=== PATIENT | female | born 1960 | race Caucasian/White ===

== ENCOUNTER 2018-01-20 13:13 | Emergency (ER) | payer OTHER, MEDICAID, SELFPAY | END 2018-01-20 14:27 | disposition left against medical advice (07) | PROVIDERS: Family Provider Family Medicine; PCP Family Medicine | DX: F10.220 Alcohol dependence with intoxication, uncomplicated (principal) | CPT/HCPCS: 99282 ==

== ENCOUNTER 2018-02-18 02:35 | Emergency (ER) | payer OTHER, MEDICAID, SELFPAY ==
--- NOTE | 2018-02-18 02:34 | ED.FALL ---
HPI - Fall General Chief Complaint: Fall Stated Complaint: ETOH on board,GLF,hit head Time Seen by Provider: 02/18/18 02:46 Source: patient and EMS History of Present Illness HPI Narrative: Patient is a 57-year-old female who is intoxicated. She apparently was trying knee into her car when she fell. She is complaining of right-sided head pain no obvious sign of trauma or bleeding. No other injuries MD complaint: fall Related Data Home Medications Medication Instructions Recorded Confirmed pseudoephedrine HCl [Sudafed 12 120 mg PO Q12HP PRN #0 ter 07/27/13 Hour] sumatriptan succinate 6 mg SQ SEE INSTRUCTIONS PRN #0 07/02/17 [id number]-HP 1 drp OTIC #0 09/15/17 Previous Rx's Medication Instructions Recorded triamcinolone acetonide 1 collette TOPICAL BID #15 gm 08/09/17 celecoxib 100 mg PO BIDCC #60 cap 08/27/17 ciclopirox [Penlac] 3.3 ml TP SEE INSTRUCTIONS #6 ml 09/17/17 trazodone 150 mg PO HS #90 tab 10/06/17 meloxicam [Mobic] 15 mg PO AMCC #30 tab 11/12/17 hydrocodone-acetaminophen [[place]] 1 - 2 tab PO Q6H PRN #15 tab 11/17/17 gabapentin [Neurontin] 800 mg PO TID #90 tab 01/04/18 venlafaxine 3 cap PO QDAY #90 tab 01/12/18 oxazepam 30 mg PO SEE INSTRUCTIONS #20 cap 01/28/18 [K/B/G/I/N/O] See Label Instructions TOPICAL TID 02/10/18 #240 gm Allergies Allergy/AdvReac Type Severity Reaction Status Date / Time pregabalin [PREGABALIN] Allergy Severe HIVES Unverified 01/19/18 12:17 adhesive tape [ADHESIVE TAPE] Allergy Unknown Unverified 01/19/18 12:17 iodine [IODINE] Allergy Unknown Unverified 01/19/18 12:17 Sulfa (Sulfonamide Allergy Unknown Unverified 01/19/18 12:17 Antibiotics) [SULFA (SULFONAMIDE ANTIBIOTICS)] Review of Systems Review of Systems All systems reviewed & are unremarkable except as noted in HPI and below Constitutional Denies fatigue, Denies frequent falls and Denies headache(s) Eyes Denies change in vision, Denies eye discharge, Denies irritation and Denies loss of vision ENT Ears, Nose, Mouth, and Throat: Denies headache(s) Cardiovascular Denies chest pain, Denies lightheadedness and Denies palpitations Musculoskeletal Comments: Recent metatarsal surgery left foot in walking boot Integumentary/Breasts Denies skin pain Neurologic Denies frequent falls, Denies headache(s) and Denies loss of vision Endocrine Denies fatigue and Denies palpitations Exam Const General: cooperative and anxious Nutritional Appearance: average body habitus Orientation: alert, awake and oriented to person Other: Intoxicated [facility] Head: normal to inspection, normocephalic, atraumatic, No contusion, No laceration, No scalp lesion and No scalp tenderness Nose: external nose normal Face and sinus: normal facial exam Mouth: oral mucosae normal Eyes Pupils: PERRL EOM: EOM intact bilaterally Neck Neck: normal visual inspection, supple and No tender Chest Chest: normal inspection of the chest Resp Effort & Inspection: normal respiratory effort, able to speak in complete sentences, no respiratory distress and no use of accessory muscles Auscultation: clear to auscultation bilaterally, no rales, no rhonchi and no wheezes Cardio Rate: regular rate Rhythm: regular rhythm Heart Sounds: no click, no gallops, no murmurs and no rubs Pulses: normal peripheral pulses GI Inspection: non-distended Palpation: soft, no hepatosplenomegaly, No guarding, No pulsatile mass and No tender Auscultation: normal bowel sounds Skin General: no rashes or lesions noted, No jaundice and No petechiae Extrem General: full ROM, no clubbing, cyanosis or edema, no pedal edema and no calf tenderness Left lower extremity: ankle (In walking boot recent surgery moving toes) [facility] Medical History Alcohol abuse (Acute) Surgical History History of tonsillectomy Status post delivery Status post delivery Status post rotator cuff repair Status post rotator cuff repair Family History Grandfather Heart disease MDM - Fall Imaging Data CT scan - head: Radiologist's impression: 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 Straightening of the normal curve may be due to positioning or muscle spasm. Course Hospital Course: 3 30 a.m. patient wanting to leave. She has a steady gait. She left prior to receiving her discharge papers. Head CT and C-spine CT have been received and are negative. Orders Ordered: ED Orders 02/18/18 02:36 CT cervical spine wo con Stat CT head/brain wo con Stat Last Vital Signs Pulse 95 H 02/18/18 02:37 Resp 14 02/18/18 02:37 BP 139/85 H 02/18/18 02:37 Pulse Ox 95 02/18/18 02:37 Discharge Plan Departure Patient Disposition: Home, Self-Care Clinical Impression: Head injury, Alcohol intoxication Activity Restrictions/Additional Instructions: *You have been diagnosed with alcohol intoxication head injury *What to do: *Take medications as directed *Follow up with your primary care provider in 2-3 days *Return to ER if you should have any new, worsening or concerning symptoms Prescriptions: No Action pseudoephedrine HCl [Sudafed 12 Hour] 120 MG tablet extended release 120 mg PO Q12HP PRNQty: 0 RF: 0 sumatriptan succinate 6 MG/0.5 ML pen injector 6 mg SQ SEE INSTRUCTIONS PRNQty: 0 RF: 0 triamcinolone acetonide 0.1 % cream 1 collette Topical BID Qty: 15 RF: 2 celecoxib 100 MG capsule 100 mg PO BIDCC Qty: 60 RF: 1 fbwopoex-vnzrmsolc-AR 10 ML drops,suspension 1 drp OTIC Qty: 0 RF: 0 ciclopirox [Penlac] 6.6 ML solution 3.3 ml TP SEE INSTRUCTIONS Qty: 6 RF: 1 trazodone 50 MG tablet 150 mg PO HS Qty: 90 RF: 3 meloxicam [Mobic] 15 MG tablet 15 mg PO AMCC Qty: 30 RF: 0 hydrocodone-acetaminophen [Sanborn] 5 MG/325 MG tablet 1 - 2 tab PO Q6H PRNQty: 15 RF: 0 gabapentin [Neurontin] 800 MG tablet 800 mg PO TID Qty: 90 RF: 5 venlafaxine 75 MG tablet extended release 24hr 3 cap PO QDAY Qty: 90 RF: 0 oxazepam 15 MG capsule 30 mg PO SEE INSTRUCTIONS Qty: 20 RF: 0 [K/B/G/I/N/O] See Label Instructions Topical TID Qty: 240 RF: 1 Referrals: Marina Mena MD [Primary Care Provider] -
--- NOTE | 2018-02-18 02:36 | DI.CT.S_ITS ---
PROCEDURE: CT HEAD/BRAIN WO CON INDICATIONS: ETOH fall TECHNIQUE: Noncontrast 4.5 mm thick angled axial sections acquired from the foramen magnum to the vertex, with coronal and sagittal reformats. For radiation dose reduction, the following was used: automated exposure control, adjustment of mA and/or kV according to patient size. COMPARISON: [facility], CT, HEAD WITHOUT CONTRAST, 07/09/2017, 21:16. FINDINGS: Image quality: Excellent. CSF spaces: Basal cisterns are patent. No extra-axial fluid collections. Ventricles are normal in size and shape. Brain: No midline shift. There is mildly prominent cortical atrophy No intracranial masses or hemorrhage. Gómez-white matter interface is normal. Skull and face: Calvarium and visualized facial bones are intact, without suspicious lesions. Sinuses: Visualized sinuses and mastoids are clear. IMPRESSION: No acute intracranial process. Dictated by: Cresencio Castro M.D. on 02/18/2018 at 7:19 Approved by: Cresencio Castro M.D. on 02/18/2018 at 7:21
--- NOTE | 2018-02-18 02:36 | DI.CT.S_ITS ---
PROCEDURE: CT CERVICAL SPINE WO CON INDICATIONS: ETOH fall TECHNIQUE: Noncontrast 3 mm thick sections acquired from the skull base to the T4 level. Sagittal and coronal reformats were then constructed. For radiation dose reduction, the following was used: automated exposure control, adjustment of mA and/or kV according to patient size. COMPARISON: [facility], CT, C-SPINE WITHOUT CONTRAST, 03/14/2017, 22:19. FINDINGS: Image quality: Excellent. Bones: No fractures or dislocations. Visualized superior ribs are intact. Straightening of the normal cervical lordosis. Grade 1 anterolisthesis C2 on C3. Grade 1 retrolisthesis of C4 on C5. Diffuse mid to lower cervical disc degeneration with endplate spurring and sclerosis. Diffuse facet arthropathy. Nonspecific focal sclerosis involving the T3 vertebral body is unchanged since 03/14/17. Recommend clinical correlation and consider bone scan as clinically indicated. Soft tissues: Prevertebral soft tissues are normal in thickness. No paravertebral hematomas. No apical pneumothoraces. IMPRESSION: No fracture. Degenerative changes as above. Straightening of the normal cervical lordosis. Dictated by: Cresencio Castro M.D. on 02/18/2018 at 7:24 Approved by: Cresencio Castro M.D. on 02/18/2018 at 7:28
[2018-02-18 02:37] VITALS: BP 139/85; PULSE 95; RESP 14; O2SAT 95
--- NOTE | 2018-02-18 03:11 | PC.NURSE ---
Pt requesting the side rail to be down. I asked her to please not get out of bed without assistance and to use the call light for help. Pt stated that she would not use the call light. She also stated that it is illegal to have the both side rails up. I informed her that we were doing it for her safetly but that we would put it down per her request.
--- NOTE | 2018-02-18 03:33 | ED_ITS ---
HPI - Fall General Chief Complaint: Fall Stated Complaint: ETOH on board,GLF,hit head Time Seen by Provider: 02/18/18 02:46 Source: patient and EMS History of Present Illness HPI Narrative: Patient is a 57-year-old female who is intoxicated. She apparently was trying knee into her car when she fell. She is complaining of right-sided head pain no obvious sign of trauma or bleeding. No other injuries MD complaint: fall Related Data Home Medications Medication Instructions Recorded Confirmed pseudoephedrine HCl [Sudafed 12 120 mg PO Q12HP PRN #0 ter 07/27/13 Hour] sumatriptan succinate 6 mg SQ SEE INSTRUCTIONS PRN #0 07/02/17 [id number]-cytxyhemz-ML 1 drp OTIC #0 09/15/17 Previous Rx's Medication Instructions Recorded triamcinolone acetonide 1 collette TOPICAL BID #15 gm 08/09/17 celecoxib 100 mg PO BIDCC #60 cap 08/27/17 ciclopirox [Penlac] 3.3 ml TP SEE INSTRUCTIONS #6 ml 09/17/17 trazodone 150 mg PO HS #90 tab 10/06/17 meloxicam [Mobic] 15 mg PO AMCC #30 tab 11/12/17 hydrocodone-acetaminophen [[place]] 1 - 2 tab PO Q6H PRN #15 tab 11/17/17 gabapentin [Neurontin] 800 mg PO TID #90 tab 01/04/18 venlafaxine 3 cap PO QDAY #90 tab 01/12/18 oxazepam 30 mg PO SEE INSTRUCTIONS #20 cap 01/28/18 [K/B/G/I/N/O] See Label Instructions TOPICAL TID 02/10/18 #240 gm Allergies Allergy/AdvReac Type Severity Reaction Status Date / Time pregabalin [PREGABALIN] Allergy Severe HIVES Unverified 01/19/18 12:17 adhesive tape [ADHESIVE TAPE] Allergy Unknown Unverified 01/19/18 12:17 iodine [IODINE] Allergy Unknown Unverified 01/19/18 12:17 Sulfa (Sulfonamide Allergy Unknown Unverified 01/19/18 12:17 Antibiotics) [SULFA (SULFONAMIDE ANTIBIOTICS)] Review of Systems Review of Systems All systems reviewed & are unremarkable except as noted in HPI and below Constitutional Denies fatigue, Denies frequent falls and Denies headache(s) Eyes Denies change in vision, Denies eye discharge, Denies irritation and Denies loss of vision ENT Ears, Nose, Mouth, and Throat: Denies headache(s) Cardiovascular Denies chest pain, Denies lightheadedness and Denies palpitations Musculoskeletal Comments: Recent metatarsal surgery left foot in walking boot Integumentary/Breasts Denies skin pain Neurologic Denies frequent falls, Denies headache(s) and Denies loss of vision Endocrine Denies fatigue and Denies palpitations Exam Const General: cooperative and anxious Nutritional Appearance: average body habitus Orientation: alert, awake and oriented to person Other: Intoxicated [facility] Head: normal to inspection, normocephalic, atraumatic, No contusion, No laceration, No scalp lesion and No scalp tenderness Nose: external nose normal Face and sinus: normal facial exam Mouth: oral mucosae normal Eyes Pupils: PERRL EOM: EOM intact bilaterally Neck Neck: normal visual inspection, supple and No tender Chest Chest: normal inspection of the chest Resp Effort & Inspection: normal respiratory effort, able to speak in complete sentences, no respiratory distress and no use of accessory muscles Auscultation: clear to auscultation bilaterally, no rales, no rhonchi and no wheezes Cardio Rate: regular rate Rhythm: regular rhythm Heart Sounds: no click, no gallops, no murmurs and no rubs Pulses: normal peripheral pulses GI Inspection: non-distended Palpation: soft, no hepatosplenomegaly, No guarding, No pulsatile mass and No tender Auscultation: normal bowel sounds Skin General: no rashes or lesions noted, No jaundice and No petechiae Extrem General: full ROM, no clubbing, cyanosis or edema, no pedal edema and no calf tenderness Left lower extremity: ankle (In walking boot recent surgery moving toes) [facility] Medical History Alcohol abuse (Acute) Surgical History History of tonsillectomy Status post delivery Status post delivery Status post rotator cuff repair Status post rotator cuff repair Family History Grandfather Heart disease MDM - Fall Imaging Data CT scan - head: Radiologist's impression: hourly shift report no acute abnormality mild cortical atrophy prominent for patient's age c-spine: Radiologist's impression: hourly shift report no evidence of fracture or subluxation. Straightening of the normal curve may be due to positioning or muscle spasm. Course Hospital Course: 3 30 a.m. patient wanting to leave. She has a steady gait. She left prior to receiving her discharge papers. Head CT and C-spine CT have been received and are negative. Orders Ordered: ED Orders 02/18/18 02:36 CT cervical spine wo con Stat CT head/brain wo con Stat Last Vital Signs Pulse 95 H 02/18/18 02:37 Resp 14 02/18/18 02:37 BP 139/85 H 02/18/18 02:37 Pulse Ox 95 02/18/18 02:37 Discharge Plan Departure Patient Disposition: Home, Self-Care Clinical Impression: Head injury, Alcohol intoxication Activity Restrictions/Additional Instructions: *You have been diagnosed with alcohol intoxication head injury *What to do: *Take medications as directed *Follow up with your primary care provider in 2-3 days *Return to ER if you should have any new, worsening or concerning symptoms Prescriptions: No Action pseudoephedrine HCl [Sudafed 12 Hour] 120 MG tablet extended release 120 mg PO Q12HP PRNQty: 0 RF: 0 sumatriptan succinate 6 MG/0.5 ML pen injector 6 mg SQ SEE INSTRUCTIONS PRNQty: 0 RF: 0 triamcinolone acetonide 0.1 % cream 1 collette Topical BID Qty: 15 RF: 2 celecoxib 100 MG capsule 100 mg PO BIDCC Qty: 60 RF: 1 tqgvwgbu-sjnusfjyo-KK 10 ML drops,suspension 1 drp OTIC Qty: 0 RF: 0 ciclopirox [Penlac] 6.6 ML solution 3.3 ml TP SEE INSTRUCTIONS Qty: 6 RF: 1 trazodone 50 MG tablet 150 mg PO HS Qty: 90 RF: 3 meloxicam [Mobic] 15 MG tablet 15 mg PO AMCC Qty: 30 RF: 0 hydrocodone-acetaminophen [[place]] 5 MG/325 MG tablet 1 - 2 tab PO Q6H PRNQty: 15 RF: 0 gabapentin [Neurontin] 800 MG tablet 800 mg PO TID Qty: 90 RF: 5 venlafaxine 75 MG tablet extended release 24hr 3 cap PO QDAY Qty: 90 RF: 0 oxazepam 15 MG capsule 30 mg PO SEE INSTRUCTIONS Qty: 20 RF: 0 [K/B/G/I/N/O] See Label Instructions Topical TID Qty: 240 RF: 1 Referrals: Marina Mena MD [Primary Care Provider] -
== END 2018-02-18 03:26 | disposition home or self-care (01) ==
PROVIDERS: Emergency Provider Emergency Medicine; Family Provider Family Medicine; PCP Family Medicine
DX: S09.90XA Unspecified injury of head, initial encounter (principal); W19.XXXA Unspecified fall, initial encounter; F10.929 Alcohol use, unspecified with intoxication, unspecified
CPT/HCPCS: 70450; 72125; 99282; 99284

== ENCOUNTER 2018-02-25 13:49 | Emergency (ER) | payer OTHER, MEDICAID, SELFPAY ==
--- NOTE | 2018-02-25 13:55 | ED.HEATRA ---
HPI - Head Injury <JOSEFA Jay - Last Filed: 02/25/18 22:09> General Chief complaint: Head Injury Stated complaint: head pain and eye twitching Time Seen by Provider: 02/25/18 13:56 History of Present Illness HPI Narrative: 57-year-old female with history of alcohol abuse here for complaint of headache over the last couple of days. She states that she had a ground level fall where she hit the back of her head. No known loss of consciousness. No nausea or vomiting. She states she has ongoing headache with pain to her right ear as well. She appears to be intoxicated at the current time. She arrived by ambulance. She denies any other injuries. She denies being on any blood thinners. Patient is able to ambulate. She denies any neck pain. Related Data Home Medications Medication Instructions Recorded Confirmed alprazolam 1.5 tab PO DAILY 02/25/18 02/25/18 meloxicam 15 mg PO DAILY 02/25/18 02/25/18 oxazepam 1 dose PO DIRECTED 02/25/18 02/25/18 sumatriptan succinate 1 dose PO PRN PRN 02/25/18 02/25/18 Previous Rx's Medication Instructions Recorded trazodone 150 mg PO HS #90 tab 10/06/17 gabapentin [Neurontin] 800 mg PO TID #90 tab 01/04/18 venlafaxine 3 cap PO QDAY #90 tab 01/12/18 [K/B/G/I/N/O] See Label Instructions TOPICAL TID 02/10/18 #240 gm Allergies Allergy/AdvReac Type Severity Reaction Status Date / Time pregabalin [PREGABALIN] Allergy Severe HIVES Verified 02/22/18 16:03 adhesive tape [ADHESIVE TAPE] Allergy Unknown Verified 02/22/18 16:03 iodine [IODINE] Allergy Unknown Verified 02/22/18 16:03 Sulfa (Sulfonamide Allergy Unknown Verified 02/22/18 16:03 Antibiotics) [SULFA (SULFONAMIDE ANTIBIOTICS)] Review of Systems <JOSEFA Jay - Last Filed: 02/25/18 22:09> Constitutional Denies chills, Denies fever(s), Reports headache(s) and Denies lethargy Eyes Denies change in vision, Denies eye discharge, Denies irritation and Denies loss of vision ENT Ears, Nose, Mouth, and Throat: Reports headache(s) Cardiovascular Denies dyspnea and Denies dyspnea on exertion Respiratory Denies cough, Denies dyspnea, Denies dyspnea on exertion and Denies wheezing Neurologic Denies confusion, Reports headache(s) and Denies loss of vision Psychiatric Denies anxiety, Denies confusion, Denies depression, Denies homicidal ideation and Denies suicidal ideation Allergic/Immunologic Denies wheezing Exam <JOSEFA Jay - Last Filed: 02/25/18 22:09> Initial Vital Signs Initial Vital Signs: Vital Signs Temperature 97.6 F 02/25/18 13:56 Pulse Rate 88 02/25/18 13:56 Respiratory Rate 16 02/25/18 13:56 Blood Pressure 134/79 H 02/25/18 13:56 Pulse Oximetry 100 02/25/18 13:56 Const General: No acute distress and intoxicated appearing Orientation: alert, awake and oriented x3 HENMT Mouth: oral mucosae normal, lip normal, oropharynx normal and moist mucous membranes Eyes Pupils: PERRL EOM: EOM intact bilaterally Neck Neck: normal visual inspection, trachea midline, No lymphadenopathy, No midline deformity, No tender and No JVD Lymphatic: No lymphedema Resp Effort & Inspection: normal respiratory effort, able to speak in complete sentences, no respiratory distress and no use of accessory muscles Auscultation: clear to auscultation bilaterally, no rales, no rhonchi and no wheezes Cardio Rate: regular rate Rhythm: regular rhythm Heart Sounds: no click, no gallops, no murmurs and no rubs GI Inspection: non-distended Palpation: soft, no hepatosplenomegaly, No guarding, No pulsatile mass and No tender Auscultation: normal bowel sounds Skin General: no rashes or lesions noted, No jaundice and No petechiae Neuro Sensory Exam: no sensory deficits noted <Darren Fink DO - Last Filed: 02/26/18 08:25> Initial Vital Signs Initial Vital Signs: Vital Signs Temperature 97.6 F 02/25/18 13:56 Pulse Rate 88 02/25/18 13:56 Respiratory Rate 16 02/25/18 13:56 Blood Pressure 134/79 H 02/25/18 13:56 Pulse Oximetry 100 02/25/18 13:56 Course <JOSEFA Jay - Last Filed: 02/25/18 22:09> Orders Ordered: ED Orders 02/25/18 14:29 CT head/brain wo con Stat 02/25/18 14:33 Complete Blood Count AUTO DIFF Stat Comprehensive Metabolic Panel Stat Ethanol (ETOH) Stat Vital Signs - 8 hr 02/25/18 13:56 Temperature 97.6 F Pulse Rate 88 Respiratory Rate 16 Blood Pressure 134/79 H Pulse Oximetry 100 <Darren Fink DO - Last Filed: 02/26/18 08:25> Orders Ordered: ED Orders 02/25/18 14:29 CT head/brain wo con Stat 02/25/18 14:33 Complete Blood Count AUTO DIFF Stat Comprehensive Metabolic Panel Stat Ethanol (ETOH) Stat Vital Signs - 8 hr 02/25/18 13:56 Temperature 97.6 F Pulse Rate 88 Respiratory Rate 16 Blood Pressure 134/79 H Pulse Oximetry 100 MDM - Head Injury <Laz AmandaJOSEFA clark - Last Filed: 02/25/18 22:09> Medical Records CT of the head was obtained and was negative for any acute findings. Patient's alcohol level resulted back at 0.367. After patient was informed that her head CT was negative patient decided to leave. She was informed that her blood alcohol level was high and that she would need somebody to look out after for her. She stated that her neighbor would be able to look out for her. It was requested that she stay until she sobered up some. Patient did not want to stay. She utilized a cab to go home and was instructed to make sure she is supervised by her neighbor to ensure no bad outcomes. She is instructed to follow up with her primary care provider. She denies any suicidal or homicidal ideation at this time. She does not desire to have inpatient services for detox. Although her alcohol level is high patient is functioning well considering. She understands risks as presented to her Lab Data Result diagrams: 02/25/18 14:33 02/25/18 14:33 Lab Results 02/25/18 02/25/18 Range/Units 14:33 14:33 WBC 3.1 L (4.5-11.0) X10^3/uL RBC 3.95 L (4.0-5.2) X10^6/uL Hgb 13.6 (12.0-16.0) g/dL Hct 39.8 (36-46) % MCV 100.6 H (80-100) fL MCH 34.4 H (26-34) PG MCHC 34.2 (30-36) % RDW 14.7 (11.6-14.8) % Plt Count 136 L (150-400) X10^3/uL Neut % (Auto) Not Reportable Lymph % (Auto) Not Reportable Stokes % (Auto) Not Reportable Eos % (Auto) Not Reportable Baso % (Auto) Not Reportable Total Counted 100 Seg Neutrophils % 15.0 L (38-70) % Band Neutrophils % 1.0 L (3-7) % Lymphocytes % (Manual) 79.0 H (25-45) % Atypical Lymphs % 1.0 H ( - 0) % Monocytes % (Manual) 2.0 (2-11) % Basophils % (Manual) 1.0 (0-1) % Metamyelocytes % 1.0 H (-0) % Neutrophils # (Manual) 496 L (8469-2204) /uL RBC Morphology Normal morphology Sodium 148 H (137-145) mmol/L Potassium 4.0 (3.4-5.1) mmol/L Chloride 104.0 (98-107) mmol/L Carbon Dioxide 31.0 (22-32) mmol/L BUN 14.0 (7-17) mg/dL Creatinine 0.40 L (0.52-1.04) mg/dL Estimated GFR > 60.0 (>60) mL/min BUN/Creatinine Ratio 35.0 H (6-22) Glucose 79 (70-100) mg/dL Calcium 8.5 (8.4-10.2) mg/dL Total Bilirubin 0.4 (0.2-1.3) mg/dL AST 50 H (14-36) IU/L ALT 29 (9-52) IU/L Alkaline Phosphatase 117 (38-126) U/L Total Protein 7.6 (6.3-8.2) g/dL Albumin 4.6 (3.5-5.0) g/dL Globulin 3.0 (1.7-4.1) g/dL Albumin/Globulin Ratio 1.5 (1.0-2.8) Ethyl Alcohol 367 mg/dL Imaging Data CT scan - head: Radiologist's impression: PROCEDURE: CT HEAD/BRAIN WO CON INDICATIONS: headache sp fall 2 days ago TECHNIQUE: Noncontrast 4.5 mm thick angled axial sections acquired from the foramen magnum to the vertex, with coronal and sagittal reformats. For radiation dose reduction, the following was used: automated exposure control, adjustment of mA and/or kV according to patient size. COMPARISON: [facility], CT, HEAD WITHOUT CONTRAST, 08/11/2016, 13:26. [facility], CT, HEAD WITHOUT CONTRAST, 03/14/2017, 22:19. [facility], CT, HEAD WITHOUT CONTRAST, 04/07/2017, 22:37. [facility], CT, HEAD WITHOUT CONTRAST, 07/02/2017, 11:27. [facility], CT, HEAD WITHOUT CONTRAST, 07/09/2017, 21:16. [facility], CT, CT HEAD/BRAIN WO CON, 02/18/2018, 2:33. FINDINGS: Image quality: Artifact from left ear ring CSF spaces: Basal cisterns are patent. No extra-axial fluid collections. Ventricles are normal in size and shape. Brain: No midline shift. No intracranial masses or hemorrhage. Gómez-white matter interface is normal. A mild degree of diffuse cortical atrophy is present. Skull and face: Calvarium and visualized facial bones are intact, without suspicious lesions. Sinuses: Visualized sinuses and mastoids are clear. IMPRESSION: No acute intracranial abnormality or interval change. <Darren Fink, DO - Last Filed: 02/26/18 08:25> Lab Data Lab Results 02/25/18 02/25/18 Range/Units 14:33 14:33 WBC 3.1 L (4.5-11.0) X10^3/uL RBC 3.95 L (4.0-5.2) X10^6/uL Hgb 13.6 (12.0-16.0) g/dL Hct 39.8 (36-46) % MCV 100.6 H (80-100) fL MCH 34.4 H (26-34) PG MCHC 34.2 (30-36) % RDW 14.7 (11.6-14.8) % Plt Count 136 L (150-400) X10^3/uL Neut % (Auto) Not Reportable Lymph % (Auto) Not Reportable Stokes % (Auto) Not Reportable Eos % (Auto) Not Reportable Baso % (Auto) Not Reportable Total Counted 100 Seg Neutrophils % 15.0 L (38-70) % Band Neutrophils % 1.0 L (3-7) % Lymphocytes % (Manual) 79.0 H (25-45) % Atypical Lymphs % 1.0 H ( - 0) % Monocytes % (Manual) 2.0 (2-11) % Basophils % (Manual) 1.0 (0-1) % Metamyelocytes % 1.0 H (-0) % Neutrophils # (Manual) 496 L (3337-5146) /uL RBC Morphology Normal morphology Sodium 148 H (137-145) mmol/L Potassium 4.0 (3.4-5.1) mmol/L Chloride 104.0 (98-107) mmol/L Carbon Dioxide 31.0 (22-32) mmol/L BUN 14.0 (7-17) mg/dL Creatinine 0.40 L (0.52-1.04) mg/dL Estimated GFR > 60.0 (>60) mL/min BUN/Creatinine Ratio 35.0 H (6-22) Glucose 79 (70-100) mg/dL Calcium 8.5 (8.4-10.2) mg/dL Total Bilirubin 0.4 (0.2-1.3) mg/dL AST 50 H (14-36) IU/L ALT 29 (9-52) IU/L Alkaline Phosphatase 117 (38-126) U/L Total Protein 7.6 (6.3-8.2) g/dL Albumin 4.6 (3.5-5.0) g/dL Globulin 3.0 (1.7-4.1) g/dL Albumin/Globulin Ratio 1.5 (1.0-2.8) Ethyl Alcohol 367 mg/dL Discharge Plan Departure Patient Disposition: Left Against Medical Advice Clinical Impression: Head injury Discharge Date/Time: 02/25/18 16:10 Interventions: ED Discharge Assessment Last Done: 02/25/18 16:11 Instructions: DI for Closed Head Injury Stand Alone Forms: Against Medical Advice <Darren Fink DO - Last Filed: 02/26/18 08:25> Cosign ED Attending Cosbrittneeature Attestation: I was immediately available in the department for consultation. This documentation has been reviewed and I agree with assessment and plan. Supervised by Darren Fink, DO
[2018-02-25 13:56] VITALS: BP 134/79; PULSE 88; RESP 16; TEMP 36.4; O2SAT 100
--- NOTE | 2018-02-25 14:06 | PC.NURSE ---
PT STATES UNABLE TO OPEN EYE. NOTED EYE OPENING INTERMITTENTLY DURING ASSESSMENT BUT WOULD NOT HOLD EYE OPEN LONG ENOUGH TO NOTE PUPIL SIZE OR REACTIVITY. NO OBVIOUS EYE CONCERN NOTED OTHER THAN EYE BEING SHUT MOST OF TIME.
--- NOTE | 2018-02-25 14:29 | DI.CT.S_ITS ---
PROCEDURE: CT HEAD/BRAIN WO CON INDICATIONS: headache sp fall 2 days ago TECHNIQUE: Noncontrast 4.5 mm thick angled axial sections acquired from the foramen magnum to the vertex, with coronal and sagittal reformats. For radiation dose reduction, the following was used: automated exposure control, adjustment of mA and/or kV according to patient size. COMPARISON: [facility], CT, HEAD WITHOUT CONTRAST, 08/11/2016, 13:26. [facility], CT, HEAD WITHOUT CONTRAST, 03/14/2017, 22:19. [facility], CT, HEAD WITHOUT CONTRAST, 04/07/2017, 22:37. [facility], CT, HEAD WITHOUT CONTRAST, 07/02/2017, 11:27. [facility], CT, HEAD WITHOUT CONTRAST, 07/09/2017, 21:16. [facility], CT, CT HEAD/BRAIN WO CON, 02/18/2018, 2:33. FINDINGS: Image quality: Artifact from left ear ring CSF spaces: Basal cisterns are patent. No extra-axial fluid collections. Ventricles are normal in size and shape. Brain: No midline shift. No intracranial masses or hemorrhage. Gómez-white matter interface is normal. A mild degree of diffuse cortical atrophy is present. Skull and face: Calvarium and visualized facial bones are intact, without suspicious lesions. Sinuses: Visualized sinuses and mastoids are clear. IMPRESSION: No acute intracranial abnormality or interval change. Dictated by: Aneesh Smiley M.D. on 02/25/2018 at 14:48 Approved by: Aneesh Smiley M.D. on 02/25/2018 at 14:52
[2018-02-25 14:39] LABS: Hematocrit 39.8 % (36-46); Hemoglobin 13.6 g/dL (12.0-16.0); Mean Corpuscular HGB Conc 34.2 % (30-36); Mean Corpuscular Hemoglobin 34.4 PG (26-34); Mean Corpuscular Volume 100.6 fL (80-100); Platelet Count 136 X10^3/uL (150-400); Red Blood Cell Count 3.95 X10^6/uL (4.0-5.2); Red Cell Distribution Width 14.7 % (11.6-14.8); White Blood Cell Count 3.1 X10^3/uL (4.5-11.0)
[2018-02-25 14:42] LABS: Add Manual Diff / Slide Review YES
[2018-02-25 14:56] LABS: Alanine Aminotransferase 29 IU/L (9-52); Albumin 4.6 g/dL (3.5-5.0); Albumin Globulin Ratio 1.5 (1.0-2.8); Alkaline Phosphatase 117 U/L (38-126); Aspartate Aminotransferase 50 IU/L (14-36); Bilirubin Total 0.4 mg/dL (0.2-1.3); Calcium 8.5 mg/dL (8.4-10.2); Estimated Glomerular Filt Rate > 60.0 mL/min (>60); Glucose 79 mg/dL (70-100); Sodium 148 mmol/L (137-145); Total Protein 7.6 g/dL (6.3-8.2)
[2018-02-25 15:04] LABS: Ethanol (ETOH) 367 mg/dL; HEMOLYSIS 21 (0-50)
--- NOTE | 2018-02-25 15:28 | PC.NURSE ---
PT REFUSING TO STAY FOR CONTINUED OBSERVATION RT [place] AND UNSTEADY GAIT. PT IS CALLING [facility] AND STATES SHE WILL LEAVE WHEN [facility] GETS HERE. INFORMED PROVIDER AND HE ACKNOWLEDGED INFORMATION AND STATED WE CAN NOT MAKE HER STAY.
[2018-02-25 15:29] LABS: Neutrophils Absolute Manual 496 /uL (3000-5900); Total Cells Counted 100
[2018-02-25 15:31] LABS: RBC Morphology Normal Morphology
== END 2018-02-25 16:10 | disposition left against medical advice (07) ==
PROVIDERS: Emergency Provider Nurse Practitioner Family; Family Provider Family Medicine; PCP Family Medicine
DX: S09.90XA Unspecified injury of head, initial encounter (principal); W19.XXXA Unspecified fall, initial encounter
CPT/HCPCS: 70450; 80053; 80320; 85025; 99282; 99284

== ENCOUNTER 2018-02-28 20:26 | Emergency (ER) | payer SELFPAY ==
--- NOTE | 2018-02-28 20:10 | PC.NURSE ---
PT BROUGHT IN BY MEDICS FOR HEADACHE, TOLD MEDICS SHE DRANK ALCOHOL TO EASE THE PAIN. PT IS ALERT TO PERSON, PLACE, TIME AND SITUATION UPON ARRIVAL. PT DEMANDS TO BE SENT TO [facility] BY [facility]. PT REFUSES CARE. PROVIDER AWARE. PT REFUSES TO SIGN [facility] PAPERWORK. SECURITY SITTING WITH PATIENT IN THE WAITING ROOM UNTIL [facility] ARRIVES.
== END 2018-02-28 20:51 | disposition left against medical advice (07) ==
LOC: ED 20:44
PROVIDERS: Family Provider Family Medicine; PCP Family Medicine
DX: R51 Headache (principal)
CPT/HCPCS: 99282

== ENCOUNTER 2018-03-24 10:39 | Emergency (ER) | payer OTHER, MEDICAID, SELFPAY ==
[2018-03-24 10:42] VITALS: BP 144/90; PULSE 98; RESP 18; TEMP 36.9; O2SAT 96; BMI 27.3
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
--- NOTE | 2018-03-24 11:25 | PC.NURSE ---
pt states i cant relax, so i cant pee pt then attempts to leave ed. through some talking and distraction pt able to redirect to room. pt aprehensive to go back, tearful states wants to go home. explained to patient we need to treat her infection so her dizziness and pain resolves to prevent her from falling again and possibly causing worse injuries. pt agreeable and escorted back to room, given warm blanket and assisted into bed.
--- NOTE | 2018-03-24 11:45 | PC.NURSE ---
Patient is trying to leave, told patient she needed to be seen by the Dr first and to sit tight while the DR could make her way over.
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
--- NOTE | 2018-03-24 13:01 | DI.CT.S_ITS ---
PROCEDURE: CT HEAD/BRAIN WO CON INDICATIONS: Headache TECHNIQUE: Noncontrast 4.5 mm thick angled axial sections acquired from the foramen magnum to the vertex, with coronal and sagittal reformats. For radiation dose reduction, the following was used: automated exposure control, adjustment of mA and/or kV according to patient size. COMPARISON: [facility], CT, CT HEAD/BRAIN WO CON, 02/18/2018, 2:33. [facility], CT, CT HEAD/BRAIN WO CON, 02/25/2018, 14:33. FINDINGS: Image quality: Excellent. CSF spaces: Basal cisterns are patent. No extra-axial fluid collections. The ventricles are symmetric in size and shape. Brain: No intracranial bleeds or masses. There is mild cerebral volume loss for age, with resultant ventricular and sulcal prominence. There mild are periventricular and deep white matter chronic small vessel ischemic changes. Skull and face: Calvarium and visualized facial bones appear intact, without suspicious lesions. Sinuses: Visualized sinuses and mastoids are clear. IMPRESSION: No acute intracranial disease process. Dictated by: Kasie Paulino MD, PhD on 03/24/2018 at 13:32 Approved by: Kasie Paulino MD, PhD on 03/24/2018 at 13:34
[2018-03-24] MEDS: CODEINE/ACETAMINOPHEN 30/300 TABLET 1 TAB PO (13:24)
--- NOTE | 2018-03-24 13:38 | ED_ITS ---
HPI - Headache <Laz Nathan SEWING MACHINE OPERATOR SEMIAUTOMATIC - Last Filed: 03/24/18 19:39> General Chief Complaint: Headache Stated Complaint: Suicidal Time Seen by Provider: 03/24/18 12:40 History of Present Illness HPI Narrative: 57-year-old female here for complaint of having headache over the past few days. She also reports having sinus congestion and left ear pain. She tried to see her primary care provider and while she was on the phone with the primary care provider she stated that she wanted to cut half of her head off. Primary care provider became concerned and called the police and did a safety check on her and brought her here. She states that she was just trying to state what her symptoms were and not that she actually wanted to cause harm to herself. She denies any suicidal ideation or homicidal ideation. She states at this point she wants to go home. She states that she will be safe. She admits to having a drink today prior to arrival. She does state that she has had a headache for the past couple of days after she fell she denies any loss of consciousness. No vomiting. She reports that she has had nasal congestion over the last week edwige half. mostly to the left side causing pain to her left ear as well. She states she has had a low-grade fever as well. No drainage from the left ear. MD Complaint: headache Related Data Home Medications Medication Instructions Recorded Confirmed alprazolam 1.5 tab PO DAILY 02/25/18 03/21/18 meloxicam 15 mg PO DAILY 02/25/18 03/21/18 oxazepam 1 dose PO DIRECTED 02/25/18 03/21/18 sumatriptan succinate 1 dose PO PRN PRN 02/25/18 03/21/18 Previous Rx's Medication Instructions Recorded trazodone 150 mg PO HS #90 tab 10/06/17 gabapentin [Neurontin] 800 mg PO TID #90 tab 01/04/18 venlafaxine 3 cap PO QDAY #90 tab 03/01/18 azelastine 137 mcg (0.1 %) nasal 2 spray NASAL BID PRN 14 Days #30 03/21/18 spray aerosol ml amoxicillin-pot clavulanate 1 tab PO Q12H #20 tab 03/24/18 Allergies Allergy/AdvReac Type Severity Reaction Status Date / Time pregabalin [PREGABALIN] Allergy Severe HIVES Verified 03/21/18 15:33 adhesive tape [ADHESIVE TAPE] Allergy Unknown Verified 03/21/18 15:33 iodine [IODINE] Allergy Unknown Verified 03/21/18 15:33 Sulfa (Sulfonamide Allergy Unknown Verified 03/21/18 15:33 Antibiotics) [SULFA (SULFONAMIDE ANTIBIOTICS)] Review of Systems <JOSEFA Jay - Last Filed: 03/24/18 19:39> Constitutional Reports fever(s) and Reports headache(s) Eyes Denies change in vision, Denies eye discharge, Denies irritation and Denies loss of vision ENT Ears, Nose, Mouth, and Throat: Reports otalgia, Reports headache(s) and Reports nasal congestion Cardiovascular Denies chest pain, Denies irregular heart rhythm, Denies lightheadedness, Denies palpitations, Denies dyspnea, Denies dyspnea on exertion and Denies orthopnea Respiratory Denies cough, Denies dyspnea, Denies dyspnea on exertion and Denies wheezing Gastrointestinal Gastrointestinal: Denies abdominal pain, Denies change in bowel habits, Denies diarrhea, Denies nausea and Denies vomiting Genitourinary Denies hematuria, Denies flank pain, Denies urinary incontinence and Denies urinary urgency Integumentary/Breasts Denies pruritus, Denies erythema, Denies rash and Denies wounds Neurologic Denies confusion, Reports headache(s) and Denies loss of vision Psychiatric Denies anxiety, Denies confusion, Denies depression, Denies homicidal ideation and Denies suicidal ideation Endocrine Denies palpitations Allergic/Immunologic Denies wheezing Exam <JOSEFA Jay - Last Filed: 03/24/18 19:39> Initial Vital Signs Initial Vital Signs: Vital Signs Temperature 98.4 F 03/24/18 10:42 Pulse Rate 98 H 03/24/18 10:42 Respiratory Rate 18 03/24/18 10:42 Blood Pressure 144/90 H 03/24/18 10:42 Pulse Oximetry 96 03/24/18 10:42 Const General: cooperative and well developed Nutritional Appearance: well nourished Orientation: alert, awake, oriented x3 and not confused HENMT Head: normocephalic and atraumatic Ears: external ears normal and TM's normal bilaterally Nose: external nose normal and No nasal discharge Face and sinus: sinuses nontender, face symmetric, no sinus tenderness and No dry mucous membranes Mouth: oral mucosae normal and moist mucous membranes Teeth and gingiva: dentition normal Throat: tonsils normal and uvula midline Eyes General: appearance normal, both eyes and all related structures Eyelids: eyelids normal Conjunctivae: conjunctivae normal Sclera: sclerae normal Pupils: PERRL EOM: EOM intact bilaterally Resp Effort & Inspection: normal respiratory effort, able to speak in complete sentences, no respiratory distress and no use of accessory muscles Auscultation: clear to auscultation bilaterally, no rales, no rhonchi and no wheezes Cardio Rate: regular rate Rhythm: regular rhythm Heart Sounds: no click, no gallops, no murmurs and no rubs GI Inspection: non-distended Palpation: soft, no hepatosplenomegaly, No guarding, No pulsatile mass and No tender Auscultation: normal bowel sounds Neuro General: alert, oriented x3, gait normal and no focal motor deficits Speech: speech normal <DO Rajwinder Clark Last Filed: 03/25/18 08:00> Initial Vital Signs Initial Vital Signs: Vital Signs Temperature 98.4 F 03/24/18 10:42 Pulse Rate 98 H 03/24/18 10:42 Respiratory Rate 18 03/24/18 10:42 Blood Pressure 144/90 H 03/24/18 10:42 Pulse Oximetry 96 03/24/18 10:42 Course <JOSEFA Jay - Last Filed: 03/24/18 19:39> Orders Ordered: Discontinued Medications Acetaminophen/Codeine Phosphate (Tylenol #3) 1 tab PO NOW ONE Stop: 03/24/18 13:24 Last Admin: 03/24/18 13:24 Dose: 1 tab Codeine Sulfate (Codeine) 30 mg PO NOW ONE Stop: 03/24/18 13:21 Last Admin: 03/24/18 13:24 Dose: Not Given Vital Signs - 8 hr 03/24/18 13:41 Pulse Rate 94 H Respiratory Rate 18 Blood Pressure [Right Arm] 145/84 H Pulse Oximetry 94 <Zamzam Ernandez DO - Last Filed: 03/25/18 08:00> Orders Ordered: Discontinued Medications Acetaminophen/Codeine Phosphate (Tylenol #3) 1 tab PO NOW ONE Stop: 03/24/18 13:24 Last Admin: 03/24/18 13:24 Dose: 1 tab Codeine Sulfate (Codeine) 30 mg PO NOW ONE Stop: 03/24/18 13:21 Last Admin: 03/24/18 13:24 Dose: Not Given Vital Signs - 8 hr 03/24/18 13:41 Pulse Rate 94 H Respiratory Rate 18 Blood Pressure [Right Arm] 145/[address] [facility] - Headache <JOSEFA Jay - Last Filed: 03/24/18 19:39> Imaging Data CT scan - head: Radiologist's impression: PROCEDURE: CT HEAD/BRAIN WO CON INDICATIONS: States weakness and changes in ability to function, resolved TECHNIQUE: Noncontrast 4.5 mm thick angled axial sections acquired from the foramen magnum to the vertex, with coronal and sagittal reformats. For radiation dose reduction, the following was used: automated exposure control, adjustment of mA and/or kV according to patient size. COMPARISON: [facility], CT, HEAD WITHOUT CONTRAST, 06/21/2015, 12:02. FINDINGS: Image quality: Excellent. CSF spaces: Basal cisterns are patent. No extra-axial fluid collections. The ventricles are symmetric in size and shape. Brain: No intracranial bleeds or masses. There is cerebral volume loss for age , with resultant ventricular and sulcal prominence. There are periventricular and deep white matter chronic small vessel ischemic changes. There is intracranial internal carotid artery atherosclerosis. Skull and face: Calvarium and visualized facial bones appear intact, without suspicious lesions. Sinuses: Visualized sinuses and mastoids are clear. IMPRESSION: No acute intracranial disease process. Dictated by: Kasie Paulino MD, PhD on 03/24/2018 at 12:18 Approved by: Kasie Paulino MD, PhD on 03/24/2018 at 12:19 [facility] Narrative Medical decision making narrative: Due to recent fall and headache CT of the head was obtained and was negative. Patient agrees to safety she denies any suicidal or homicidal ideation. Her blood alcohol level was .241 which she able to function well and make sound decisions. She is encouraged to follow up with her primary care provider next week. She is prescribed Augmentin to treat sinus infection. For any worsening symptoms return to the emergency room. Patient lives close to hospital and desires to take a taxi home. She is able to ambulate without any complications. Discharge Plan Departure Patient Disposition: Home, Self-Care Clinical Impression: Headache, Sinusitis Discharge Date/Time: 03/24/18 15:07 Interventions: ED Discharge Assessment Last Done: 03/24/18 15:07 Instructions: DI for Sinusitis Activity Restrictions/Additional Instructions: CT of the head was obtained was negative for any acute findings. Pressure to the sinus area presents as sinusitis. Urine prescribed an antibiotic use as directed. Use [id number] Tylenol or Motrin as needed for any discomfort. Follow up with primary care provider next week for re-evaluation. For any worsening symptoms return to the emergency room. Do not drive under the influence. Return emergency room for any worsening symptoms. Prescriptions: New amoxicillin-pot clavulanate 875-125 mg tablet 1 tab PO Q12H Qty: 20 RF: 0 No Action azelastine 137 mcg (0.1 %) aerosol,spray 2 spray NASAL BID PRN (Reason: as needed for sinus pressure) 14 Days Qty: 30 RF: 3 trazodone 50 MG tablet 150 mg PO HS Qty: 90 RF: 3 gabapentin [Neurontin] 800 MG tablet 800 mg PO TID Qty: 90 RF: 5 venlafaxine 75 mg tablet extended release 24hr 3 cap PO QDAY Qty: 90 RF: 0 meloxicam 15 mg tablet 15 mg PO DAILY RF: 0 sumatriptan succinate 100 mg tablet 1 dose PO PRN PRN (Reason: Migraine Headache) RF: 0 oxazepam 15 mg capsule 1 dose PO DIRECTED RF: 0 alprazolam 0.5 mg tablet 1.5 tab PO DAILY RF: 0 Referrals: Marina Mena MD [Primary Care Provider] - <Zamzam Ernandez DO - Last Filed: 03/25/18 08:00> Cosign ED Attending Richard Attestation: I was immediately available in the department for consultation. Documentation has been reviewed. I agree with assessment and plan.
[2018-03-24 13:41] VITALS: BP 145/84; PULSE 94; RESP 18; O2SAT 94
--- NOTE | 2018-03-24 14:54 | ED.HA ---
HPI - Headache General Chief Complaint: Headache Stated Complaint: Suicidal Time Seen by Provider: 03/24/18 12:40 Related Data Home Medications Medication Instructions Recorded Confirmed alprazolam 1.5 tab PO DAILY 02/25/18 03/21/18 meloxicam 15 mg PO DAILY 02/25/18 03/21/18 oxazepam 1 dose PO DIRECTED 02/25/18 03/21/18 sumatriptan succinate 1 dose PO PRN PRN 02/25/18 03/21/18 Previous Rx's Medication Instructions Recorded trazodone 150 mg PO HS #90 tab 10/06/17 gabapentin [Neurontin] 800 mg PO TID #90 tab 01/04/18 venlafaxine 3 cap PO QDAY #90 tab 03/01/18 azelastine 137 mcg (0.1 %) nasal 2 spray NASAL BID PRN 14 Days #30 03/21/18 spray aerosol ml amoxicillin-pot clavulanate 1 tab PO Q12H #20 tab 03/24/18 Allergies Allergy/AdvReac Type Severity Reaction Status Date / Time pregabalin [PREGABALIN] Allergy Severe HIVES Verified 03/21/18 15:33 adhesive tape [ADHESIVE TAPE] Allergy Unknown Verified 03/21/18 15:33 iodine [IODINE] Allergy Unknown Verified 03/21/18 15:33 Sulfa (Sulfonamide Allergy Unknown Verified 03/21/18 15:33 Antibiotics) [SULFA (SULFONAMIDE ANTIBIOTICS)] Review of Systems Constitutional Reports headache(s) Eyes Denies loss of vision ENT Ears, Nose, Mouth, and Throat: Reports headache(s) Neurologic Denies confusion, Reports headache(s) and Denies loss of vision Psychiatric Denies confusion [facility] Medical History Anxiety (Chronic) Bicytopenia (Chronic) Chronic back pain (Chronic 2001) Depression (Chronic) Shoulder pain (Chronic) Alcohol abuse (Acute) Surgical History History of tonsillectomy (Resolved 1979) Status post delivery (Resolved 1983) Status post delivery (Resolved 1986) Status post rotator cuff repair (Resolved 2002) Status post rotator cuff repair (Resolved 2009) Family History Grandfather Heart disease Grandmother Alzheimer's disease Grandfather No problems noted. Social History Smoking Status: Former smoker Exam Initial Vital Signs Initial Vital Signs: Vital Signs Temperature 98.4 F 03/24/18 10:42 Pulse Rate 98 H 03/24/18 10:42 Respiratory Rate 18 03/24/18 10:42 Blood Pressure 144/90 H 03/24/18 10:42 Pulse Oximetry 96 03/24/18 10:42 Scores PERC Score Age greater than or equal to 50 years: No Heart rate greater than or equal to 100 bpm: No Room Air O2 Sat less than 95%: No Unilateral leg swelling: No Recent trauma or surgery: No Hemoptysis: No Prior PE or DVT: No Hormone Use: No Course Orders Ordered: ED Orders 03/24/18 13:01 CT head/brain wo con Stat Discontinued Medications Acetaminophen/Codeine Phosphate (Tylenol #3) 1 tab PO NOW ONE Stop: 03/24/18 13:24 Last Admin: 03/24/18 13:24 Dose: 1 tab Codeine Sulfate (Codeine) 30 mg PO NOW ONE Stop: 03/24/18 13:21 Last Admin: 03/24/18 13:24 Dose: Not Given Vital Signs - 8 hr 03/24/18 10:42 03/24/18 13:41 Temperature 98.4 F Pulse Rate 98 H 94 H Respiratory Rate 18 18 Blood Pressure 144/90 H Blood Pressure [Right Arm] 145/84 H Pulse Oximetry 96 94 Discharge Plan Departure Patient Disposition: Home, Self-Care Clinical Impression: Headache, Sinusitis Instructions: DI for Sinusitis Activity Restrictions/Additional Instructions: CT of the head was obtained was negative for any acute findings. Pressure to the sinus area presents as sinusitis. Urine prescribed an antibiotic use as directed. Use [id number] Tylenol or Motrin as needed for any discomfort. Follow up with primary care provider next week for re-evaluation. For any worsening symptoms return to the emergency room. Do not drive under the influence. Return emergency room for any worsening symptoms. Prescriptions: New amoxicillin-pot clavulanate 875-125 mg tablet 1 tab PO Q12H Qty: 20 RF: 0 No Action azelastine 137 mcg (0.1 %) aerosol,spray 2 spray NASAL BID PRN (Reason: as needed for sinus pressure) 14 Days Qty: 30 RF: 3 trazodone 50 MG tablet 150 mg PO HS Qty: 90 RF: 3 gabapentin [Neurontin] 800 MG tablet 800 mg PO TID Qty: 90 RF: 5 venlafaxine 75 mg tablet extended release 24hr 3 cap PO QDAY Qty: 90 RF: 0 meloxicam 15 mg tablet 15 mg PO DAILY RF: 0 sumatriptan succinate 100 mg tablet 1 dose PO PRN PRN (Reason: Migraine Headache) RF: 0 oxazepam 15 mg capsule 1 dose PO DIRECTED RF: 0 alprazolam 0.5 mg tablet 1.5 tab PO DAILY RF: 0 Referrals: Marina Mena MD [Primary Care Provider] -
== END 2018-03-24 15:07 | disposition home or self-care (01) ==
PROVIDERS: Emergency Provider Nurse Practitioner Family; Family Provider Family Medicine; PCP Family Medicine
DX: R51 Headache (principal); J32.9 Chronic sinusitis, unspecified
CPT/HCPCS: 70450; 82075; 99282; 99284

== ENCOUNTER 2018-05-02 07:04 | Emergency (ER) | payer OTHER, MEDICAID, SELFPAY ==
[2018-05-02 07:17] VITALS: BP 121/72; PULSE 90; RESP 18; TEMP 37; O2SAT 97
--- NOTE | 2018-05-02 07:48 | DI.RAD.S_ITS ---
PROCEDURE: XR CHEST 2V INDICATIONS: s/p fall w/ chest pain TECHNIQUE: 2 views of the chest were acquired. COMPARISON: [facility], , CHEST 2 VIEW, 12/27/2017, 12:52. FINDINGS: Surgical changes and devices: None. Lungs and pleura: No pleural effusions or pneumothorax. Lungs are clear. Mediastinum: Mediastinal contours are normal. Heart size is normal. Bones and chest wall: No suspicious bony abnormalities. Soft tissues appear unremarkable. IMPRESSION: No acute cardiopulmonary disease process. Repeat plain film radiographs targeted to area of maximal tenderness or advanced imaging (CT scan) is warranted if symptoms persist. Dictated by: Kasie Paulino MD, PhD on 05/02/2018 at 8:38 Approved by: Kasie Paulino MD, PhD on 05/02/2018 at 8:40
--- NOTE | 2018-05-02 08:04 | DI.CT.S_ITS ---
PROCEDURE: CT HEAD/BRAIN WO CON INDICATIONS: s/p fall w/ head strike and AMS TECHNIQUE: Noncontrast 4.5 mm thick angled axial sections acquired from the foramen magnum to the vertex, with coronal and sagittal reformats. For radiation dose reduction, the following was used: automated exposure control, adjustment of mA and/or kV according to patient size. COMPARISON: [facility], CT, CT HEAD/BRAIN WO CON, 03/24/2018, 13:04. [facility], CT, CT HEAD/BRAIN WO CON, 02/25/2018, 14:33. [facility], CT, CT HEAD/BRAIN WO CON, 02/18/2018, 2:33. [facility], CT, HEAD WITHOUT CONTRAST, 07/02/2017, 11:27. [facility], CT, HEAD WITHOUT CONTRAST, 04/07/2017, 22:37. FINDINGS: Image quality: Excellent. CSF spaces: Basal cisterns are patent. No extra-axial fluid collections. Ventricles are normal in size and shape. Brain: No midline shift. No intracranial masses or hemorrhage. Mild, triple volume loss for age with resultant ventricular and sulcal prominence. There are mild periventricular and deep white matter chronic small vessel ischemic changes. Gómez-white matter interface is normal. Skull and face: Calvarium and visualized facial bones are intact, without suspicious lesions. Mild left frontal scalp swelling noted. Sinuses: Visualized sinuses and mastoids are clear. IMPRESSION: No acute intracranial disease process. Dictated by: Kasie Paulino MD, PhD on 05/02/2018 at 8:17 Approved by: Kasie Paulino MD, PhD on 05/02/2018 at 8:21
--- NOTE | 2018-05-02 08:04 | DI.CT.S_ITS ---
PROCEDURE: CT CERVICAL SPINE WO CON INDICATIONS: s/p fall w/ head strike and AMS TECHNIQUE: Noncontrast 3 mm thick sections acquired from the skull base to the T4 level. Sagittal and coronal reformats were then constructed. For radiation dose reduction, the following was used: automated exposure control, adjustment of mA and/or kV according to patient size. COMPARISON: [facility], CT, C-SPINE WITHOUT CONTRAST, 03/14/2017, 22:19. [facility], CT, CT CERVICAL SPINE WO CON, 02/18/2018, 2:33. FINDINGS: Image quality: Excellent. Bones: No fractures or dislocations. Trace C2-C3 anterolisthesis stable compared to prior examination. Spine degenerative disc disease and facet arthropathy. Sclerotic lesion in the superior aspect of the T3 vertebral body is stable in size and contour compared to prior examinations. Visualized superior ribs are intact. Soft tissues: Prevertebral soft tissues are normal in thickness. No paravertebral hematomas. No apical pneumothoraces. IMPRESSION: No fracture. No acute osseous lesion. If symptoms and/or clinical suspicion for pathology persists, evaluation with MRI may be helpful for further assessment. Dictated by: Kasie Paulino MD, PhD on 05/02/2018 at 8:21 Approved by: Kasie Paulino MD, PhD on 05/02/2018 at 8:29
[2018-05-02 08:22] VITALS: BP 131/85; PULSE 89; RESP 18; O2SAT 98
[2018-05-02 08:27] LABS: Add Manual Diff / Slide Review NO; Basophils Percent Auto 0.4 % (0-2); Eosinophils Percent Auto 1.2 % (2-4); Hematocrit 40.8 % (36-46); Hemoglobin 13.8 g/dL (12.0-16.0); Lymphocytes Percent Auto 44.6 % (25-40); Mean Corpuscular HGB Conc 33.8 % (30-36); Mean Corpuscular Hemoglobin 34.3 PG (26-34); Mean Corpuscular Volume 101.5 fL (80-100); Monocytes Percent Auto 6.2 % (3-14); Neutrophils Absolute Auto 2000 /uL (3000-5900); Neutrophils Percent Auto 47.6 % (50-75); Platelet Count 183 X10^3/uL (150-400); Red Blood Cell Count 4.02 X10^6/uL (4.0-5.2); Red Cell Distribution Width 13.9 % (11.6-14.8); White Blood Cell Count 4.2 X10^3/uL (4.5-11.0)
[2018-05-02 08:42] LABS: Lactate (Lactic Acid) 1.1 mmol/L (0.7-2.1)
[2018-05-02 08:44] LABS: Alanine Aminotransferase 39 IU/L (9-52); Albumin 4.5 g/dL (3.5-5.0); Albumin Globulin Ratio 1.7 (1.0-2.8); Alkaline Phosphatase 111 U/L (38-126); Aspartate Aminotransferase 55 IU/L (14-36); Bilirubin Total 0.2 mg/dL (0.2-1.3); Blood Urea Nitrogen 12 mg/dL (7-17); Carbon Dioxide 34 mmol/L (22-32); Chloride 107 mmol/L (98-107); Estimated Glomerular Filt Rate > 60.0 mL/min (>60); Gamma Glutamyl Transpeptidase 36 U/L (12-43); Globulin 2.7 g/dL (1.7-4.1); Glucose 90 mg/dL (70-100); HEMOLYSIS < 15 (0-50); Lipase 121 U/L (23-300); Potassium 4.2 mmol/L (3.4-5.1); Sodium 150 mmol/L (137-145); Total Protein 7.2 g/dL (6.3-8.2)
[2018-05-02 08:52] LABS: Ethanol (ETOH) 294 mg/dL
[2018-05-02 10:13] VITALS: BP 144/83; PULSE 96; RESP 18; O2SAT 100
--- NOTE | 2018-05-02 10:25 | ED.FALL ---
HPI - Fall General Chief Complaint: Fall Stated Complaint: GLF, trouble breathing Time Seen by Provider: 05/02/18 07:14 History of Present Illness HPI Narrative: HPI 57-year-old female with history of EtOH abuse and a a left foot Lisfranc fracture, pancytopenia, nodulocystic acne, and a lung mass presents slurring her speech, confused and complaining of head pain and chest pain after a fall backwards from standing height yesterday in which she struck the back of her head on a fence while gardening. Patient reports that she was pulling weeds, her hand slipped backwards, struck her left face, and that she stumbled backwards striking the back of her head against a fence. Unclear LOC, unclear how the patient struck her right chest, but has been complaining of right-sided chest discomfort since her injury. Patient may have had a garden tool in her hand when she struck her face. Patient reports that she was seen at urgent care and is recommended that she present to the emergency department for a CT head. The patient then went home and rested through the night at had ongoing symptoms and presented to the ED for further care. Outside records reviewed with respect to lung mass, notable for a CT dated 04/20/18. Impression: infiltrates are present in the lower lobes bilaterally, right greater than left, suspect for pneumonia. Correlate clinically. 2.5 cm hypodense filling defect in the lower right lobe of the kidney is likely hemangioma but limited abdominal ultrasound is advised for further evaluation. M/S/F/SocHx notable for: please see HPI; remainder reviewed with patient and in chart. ROS: Negative constitutional, eye, cardiovascular, pulmonary, GI, , MSK, skin, neurologic, psychiatric, endocrine unless noted in the HPI. Exam General: pleasant, not in extremis, slurring speech, moderately confused. HENT: ecchymosis and abrasions the orbital rim lateral, inferior, and superior to the left eye, no underlying bony tenderness to palpation, occipital tenderness to palpation without further palpable abnormalities, TTP of orbits, TTP of midface, malocclusion, or septal hematoma. OP clear and moist, dentition intact. Eyes: EOMI, PERRL. Neck: Tracheal midline. No visible skin defects, no step-offs, no c-spine TTP, no stridor, or JVD. Cardiac: Regular rate and rhythm. Chest: No crepitus, visual evidence of trauma, no tenderness to palpation. Equal chest rise. Pulm: Clear to auscultation bilaterally, normal work of breathing without accessory muscle usage. Abd: Soft, nontender to palpation, nondistended, no guarding or visual evidence of trauma. Back: No spinous process tenderness to palpation, no step-offs or visible injuries. Pelvis: Stable, no tenderness to palpation or instability. RUE: No visible injuries. Board Certified Family Physician 5/5, radial pulse 2+, sensation intact at hand. Shoulder, elbow, wrist, and fingers with full functional range of motion. Muscle compartments of the upper arm, forearm, and hand are soft and without marked tenderness to palpation. LUE: No visible injuries. Board Certified Family Physician 5/5, radial pulse 2+, sensation intact at hand. Shoulder, elbow, wrist, and fingers with full functional range of motion. Muscle compartments of the upper arm, forearm, and hand are soft and without marked tenderness to palpation. RLE: Band-Aid on abrasion over right knee, no further visible injuries. Dorsiflexion 5/5, distal pulse 2+, sensation intact at foot. Hip, knee, ankle, and toes with full functional range of motion. Muscle compartments of the thigh, calf, and foot are soft and without marked tenderness to palpation. LLE: walking boot in place, no visible injuries. Dorsiflexion 5/5, distal pulse 2+, sensation grossly intact. Hip, knee, ankle, and toes with full functional range of motion. Muscle compartments of the thigh, calf, and foot are soft and without marked tenderness to palpation. Neuro: AOx3, CN VII intact slurring speech. Skin: Warm and dry (focal injuries noted above). Psych: unusual mood and affect. Labs / Imaging (pertinent): CT head: no acute intracranial process. CT C-spine: no acute traumatic abnormality. CXR: no acute cardiopulmonary abnormality. WBC 4.2, Hb 13.8, Na 150, K 4.2, GGT 36, AST 55, ALT 39, EtOH 294. MDM Previous chart, nursing note, and vitals reviewed. A: 57-year-old female with history of EtOH abuse and a a left foot Lisfranc fracture, pancytopenia, nodulocystic acne, and a lung mass presents slurring her speech, confused and complaining of head pain and chest pain after a fall backwards from standing height yesterday in which she struck the back of her head on a fence while gardening. 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 CT head and C-spine are without evidence of clinically significant traumatic abnormalities, chest x-ray has no further evidence of traumatic abnormalities. Patient's labs are notable for consistent hypernatremia. Patient observed to clinical sobriety and discharge with PCP follow-up recommended. Impression: fall, contusions, EtOH intoxication (please reference below for remainder of encounter information) Related Data Home Medications Medication Instructions Recorded Confirmed alprazolam 1.5 tab PO DAILY 02/25/18 05/01/18 meloxicam 15 mg PO DAILY 02/25/18 05/01/18 sumatriptan succinate 1 dose PO PRN PRN 02/25/18 05/01/18 Previous Rx's Medication Instructions Recorded trazodone 150 mg PO HS #90 tab 10/06/17 gabapentin [Neurontin] 800 mg PO TID #90 tab 01/04/18 venlafaxine 3 cap PO QDAY #90 tab 04/05/18 tretinoin 0.1 % topical cream 1 applictn TOP Q3D #45 gram 04/20/18 mupirocin 2 % topical ointment 1 applictn TOP BID 14 Days #15 gram 05/01/18 Allergies Allergy/AdvReac Type Severity Reaction Status Date / Time pregabalin [PREGABALIN] Allergy Severe HIVES Verified 05/01/18 10:51 adhesive tape [ADHESIVE TAPE] Allergy Unknown Verified 05/01/18 10:51 iodine [IODINE] Allergy Unknown Verified 05/01/18 10:51 Sulfa (Sulfonamide Allergy Unknown Verified 05/01/18 10:51 Antibiotics) [SULFA (SULFONAMIDE ANTIBIOTICS)] Exam Initial Vital Signs Initial Vital Signs: Vital Signs Temperature 98.6 F 05/02/18 07:17 Pulse Rate 90 05/02/18 07:17 Respiratory Rate 18 05/02/18 07:17 Blood Pressure 121/72 H 05/02/18 07:17 Pulse Oximetry 97 05/02/18 07:17 PFSH Family History Grandfather Heart disease Grandmother Alzheimer's disease Grandfather No problems noted. Social History Smoking Status: Never smoker alcohol intake: former Type(s) of exercise: walking and weight lifting frequency: 3-4 times per week Course Orders Ordered: ED Orders 05/02/18 07:48 XR chest 2V Stat Urine Drug Screen, Rapid Stat 05/02/18 08:04 CT cervical spine wo con Stat CT head/brain wo con Stat 05/02/18 08:15 Complete Blood Count AUTO DIFF Stat Comprehensive Metabolic Panel Stat Ethanol (ETOH) Stat Gamma Glutamyl Transpeptidase Stat Lactate (Lactic Acid) Stat Lipase Stat Magnesium Stat Vital Signs - 8 hr 05/02/18 07:17 05/02/18 08:22 05/02/18 10:13 Temperature 98.6 F Pulse Rate 90 89 96 H Respiratory Rate 18 18 18 Blood Pressure 121/72 H Blood Pressure [Left Arm] 131/85 H 144/83 H Pulse Oximetry 97 98 100 MDM - Fall Lab Data Result diagrams: 05/02/18 08:15 05/02/18 08:15 Lab Results 05/02/18 05/02/18 05/02/18 Range/Units 08:15 08:15 08:15 WBC 4.2 L (4.5-11.0) X10^3/uL RBC 4.02 (4.0-5.2) X10^6/uL Hgb 13.8 (12.0-16.0) g/dL Hct 40.8 (36-46) % MCV 101.5 H (80-100) fL MCH 34.3 H (26-34) PG MCHC 33.8 (30-36) % RDW 13.9 (11.6-14.8) % Plt Count 183 (150-400) X10^3/uL Neut % (Auto) 47.6 L (50-75) % Lymph % (Auto) 44.6 H (25-40) % Calhoun % (Auto) 6.2 (3-14) % Eos % (Auto) 1.2 L (2-4) % Baso % (Auto) 0.4 (0-2) % Neut # (Auto) 2000 L (3082-0860) /uL Sodium 150 H (137-145) mmol/L Potassium 4.2 (3.4-5.1) mmol/L Chloride 107 (98-107) mmol/L Carbon Dioxide 34 H (22-32) mmol/L BUN 12 (7-17) mg/dL Creatinine 0.50 L (0.52-1.04) mg/dL Estimated GFR > 60.0 (>60) mL/min BUN/Creatinine Ratio 24.0 H (6-22) Glucose 90 (70-100) mg/dL Lactate 1.1 (0.7-2.1) mmol/L Calcium 9.0 (8.4-10.2) mg/dL Magnesium 2.0 (1.6-2.3) mg/dL Total Bilirubin 0.2 (0.2-1.3) mg/dL GGT 36 (12-43) U/L AST 55 H (14-36) IU/L ALT 39 (9-52) IU/L Alkaline Phosphatase 111 (38-126) U/L Total Protein 7.2 (6.3-8.2) g/dL Albumin 4.5 (3.5-5.0) g/dL Globulin 2.7 (1.7-4.1) g/dL Albumin/Globulin Ratio 1.7 (1.0-2.8) Lipase 121 (23-300) U/L Ethyl Alcohol 294 mg/dL Discharge Plan Departure Prescriptions: No Action mupirocin 2 % ointment 1 applictn TOP BID 14 Days Qty: 15 RF: 0 trazodone 50 MG tablet 150 mg PO HS Qty: 90 RF: 3 gabapentin [Neurontin] 800 MG tablet 800 mg PO TID Qty: 90 RF: 5 venlafaxine 75 mg tablet extended release 24hr 3 cap PO QDAY Qty: 90 RF: 0 tretinoin 0.1 % cream 1 applictn TOP Q3D Qty: 45 RF: 1 meloxicam 15 mg tablet 15 mg PO DAILY RF: 0 sumatriptan succinate 100 mg tablet 1 dose PO PRN PRN (Reason: Migraine Headache) RF: 0 alprazolam 0.5 mg tablet 1.5 tab PO DAILY RF: 0
== END 2018-05-02 10:35 | disposition home or self-care (01) ==
PROVIDERS: Emergency Provider Emergency Medicine; Family Provider Family Medicine; PCP Family Medicine
DX: S00.93XA Contusion of unspecified part of head, initial encounter (principal); W19.XXXA Unspecified fall, initial encounter; F10.129 Alcohol abuse with intoxication, unspecified
CPT/HCPCS: 36415; 70450; 71046; 72125; 80053; 80320; 82977; 83605; 83690; 83735; 85025; 99283; 99284

== ENCOUNTER 2018-05-20 15:19 | Emergency (ER) | payer OTHER, MEDICAID, SELFPAY ==
[2018-05-20 15:20] VITALS: BP 129/90; PULSE 85; RESP 18; TEMP 36.8; O2SAT 97
--- NOTE | 2018-05-20 15:32 | DI.CT.S_ITS ---
PROCEDURE: CT HEAD/BRAIN WO CON INDICATIONS: hit head TECHNIQUE: Noncontrast 4.5 mm thick angled axial sections acquired from the foramen magnum to the vertex, with coronal and sagittal reformats. For radiation dose reduction, the following was used: automated exposure control, adjustment of mA and/or kV according to patient size. COMPARISON: [facility], CT, CT HEAD/BRAIN WO CON, 05/02/2018, 7:54. [facility], CT, CT HEAD/BRAIN WO CON, 03/24/2018, 13:04. [facility], CT, CT HEAD/BRAIN WO CON, 02/25/2018, 14:33. FINDINGS: Image quality: Excellent. CSF spaces: Basal cisterns are patent. No extra-axial fluid collections. Ventricles are normal in size and shape. Brain: No midline shift. No intracranial masses or hemorrhage. Gómez-white matter interface is normal. Skull and face: Calvarium and visualized facial bones are intact, without suspicious lesions. Sinuses: Visualized sinuses and mastoids are clear. IMPRESSION: No acute intracranial abnormality. Dictated by: Teo Thomas M.D. on 05/20/2018 at 16:17 Approved by: Teo Thomas M.D. on 05/20/2018 at 16:18
--- NOTE | 2018-05-20 15:57 | CM.SWNOTE ---
Discharge Planning/Care Management ED LABORER HOISTING NOTE: FINISH ROLLS OPERATOR called [facility] for MIS check. Pt does not have any hx of hospitalizations. She was briefly seen by Kaye, was seen at [facility] for one appointment this year. Dx listed as PTSD according to previous record. Pt is being checked for Head CT scan due to fall, but not interested in SW services. FINISH ROLLS OPERATOR remains available should pt desire resources. According to ED staff, pt unfortunately frequently comes to the ED intoxicated. ED Crisis Response Assessment Start: 05/20/18 15:53 Freq: Status: Active Protocol: Document 05/20/18 15:53 BG (Rec: 05/20/18 15:57 BG [id number]) ED Crisis Response Assessment LABORER HOISTING Assessment Type Substance Abuse Other Reason for LABORER HOISTING Referral Pt frequently comes to the ED intoxicated and is here today after a fall. Referred by Emergency Room RN Presenting Problem Pt is tearful, holding her side, with an odor of ETOH, but insisted she was fine. She frequently stated that she wanted to leave, but was brought in by medics, did not have shoes nor a ride. Pt said she was safe, not suicidal. She was not willing to engage with ED LABORER HOISTING, but was tearful when FINISH ROLLS OPERATOR stated that I could be available to help if she desired. Current Risk factors Substance abuse Crisis Plan Pt was unwilling to engage.
--- NOTE | 2018-05-20 16:01 | ED.HA ---
HPI - Headache <Melonie Gannon PA-C - Last Filed: 05/20/18 22:12> General Chief Complaint: Headache Stated Complaint: headache Time Seen by Provider: 05/20/18 15:49 Source: patient Mode of arrival: ambulatory Limitations: other (eTOH) History of Present Illness HPI Narrative: This 57-year-old female comes here today complaining of pain from fall. She states that she fell backwards earlier today and hit her head and her right-sided ribs. She initially denies that she has been drinking, later admits to this. She was attempting to leave and refuse CT scan stating she wants to go home, but admits that she has headache along with the rib pain. She denies pain in her neck or any other injury or pain today. She has not had nausea or vomiting in the department. Apparently a co-worker called 911 due to be worried about her. Related Data Home Medications Medication Instructions Recorded Confirmed alprazolam 1.5 tab PO DAILY PRN 02/25/18 05/20/18 sumatriptan succinate 1 dose PO PRN PRN 02/25/18 05/20/18 Previous Rx's Medication Instructions Recorded trazodone 150 mg PO HS #90 tab 10/06/17 gabapentin [Neurontin] 800 mg PO TID #90 tab 01/04/18 tretinoin 0.1 % topical cream 1 applictn TOP Q3D #45 gram 04/20/18 oxazepam 15 mg capsule See Label Instructions PO 05/23/18 DIRECTED PRN #30 cap KBGINIL See Label Instructions .ROUTE 05/31/18 .COMPLEX #480 gram venlafaxine ER 75 mg 75 mg PO QDAY #90 tab 06/08/18 tablet,extended release 24 hr Allergies Allergy/AdvReac Type Severity Reaction Status Date / Time pregabalin [PREGABALIN] Allergy Severe HIVES Verified 05/01/18 10:51 adhesive tape [ADHESIVE TAPE] Allergy Unknown Verified 05/01/18 10:51 iodine [IODINE] Allergy Unknown Verified 05/01/18 10:51 Sulfa (Sulfonamide Allergy Unknown Verified 05/01/18 10:51 Antibiotics) [SULFA (SULFONAMIDE ANTIBIOTICS)] Review of Systems <Melonie Gannon PA-C - Last Filed: 05/20/18 22:12> Review of Systems unobtainable due to mental status Exam <Melonie Gannon PA-C - Last Filed: 05/20/18 22:12> Narrative Exam Narrative: GENERAL APPEARANCE: Patient ambulating through the hallway, intermittently tearful, but in NAD HEENT: No scalp laceration or hematoma visible, no tenderness to palpation. Kalli, EOMI NECK/THYROID: Neck supple LUNGS: Clear to auscultation bilaterally. HEART: Regular rate and rhythm without murmur, normal S1, S2, no S3 or S4. CHEST: Tender over the right upper to mid anterior lateral ribs ABDOMEN: Soft, NT, ND, + BS x 4 quadrants EXTREMITIES: No cyanosis or edema NEUROLOGIC: Patient is not able to give a complete history or focus on topic MUSCULOSKELETAL: Full range of motion of the extremities. No point tenderness over the cervical, thoracic or lumbar spine. Initial Vital Signs Initial Vital Signs: Vital Signs Temperature 98.2 F 05/20/18 15:20 Pulse Rate 85 05/20/18 15:20 Respiratory Rate 18 05/20/18 15:20 Blood Pressure 129/90 H 05/20/18 15:20 Pulse Oximetry 97 05/20/18 15:20 <Cheko Mike MD - Last Filed: 06/16/18 18:25> Initial Vital Signs Initial Vital Signs: Vital Signs Temperature 98.2 F 05/20/18 15:20 Pulse Rate 85 05/20/18 15:20 Respiratory Rate 18 05/20/18 15:20 Blood Pressure 129/90 H 05/20/18 15:20 Pulse Oximetry 97 05/20/18 15:20 Course <Melonie Gannon PA-C - Last Filed: 05/20/18 22:12> Additional Information: I reviewed findings with Dr. Mike who agrees with plan for discharge. He is familiar with this patient.. Patient is more lucid prior to discharge, admits that she had been drinking today, feeling better now. She states that she would like help with alcohol treatment resources which were given. Advised no injury found today on testing but that she should return if any new or worsening symptoms. Orders Ordered: ED Orders 05/20/18 15:32 CT head/brain wo con Stat 05/20/18 16:08 XR chest 1V Stat Vital Signs - 8 hr 05/20/18 15:20 Temperature 98.2 F Pulse Rate 85 Respiratory Rate 18 Blood Pressure 129/90 H Pulse Oximetry 97 <Cheko Mike MD - Last Filed: 06/16/18 18:25> Orders Ordered: ED Orders 05/20/18 15:32 CT head/brain wo con Stat 05/20/18 16:08 XR chest 1V Stat Vital Signs - 8 hr 05/20/18 15:20 Temperature 98.2 F Pulse Rate 85 Respiratory Rate 18 Blood Pressure 129/90 H Pulse Oximetry 97 MDM - Headache <Melonie Gannon PA-C - Last Filed: 05/20/18 22:12> Imaging Data CT scan - head: Radiologist's impression: View Report History Print [address] [address] [address] Scan Report Signed Patient: Debbie Cho MR#: [id number] : 1960 Acct:[id number] Age/Sex: 57 / F Date of Service: 05/20/18 Loc: ED Accession Number: [id number] Procedure: CT head/brain wo con Ordering Provider: Cheko Mike M.D. PROCEDURE: CT HEAD/BRAIN WO CON INDICATIONS: hit head TECHNIQUE: Noncontrast 4.5 mm thick angled axial sections acquired from the foramen magnum to the vertex, with coronal and sagittal reformats. For radiation dose reduction, the following was used: automated exposure control, adjustment of mA and/or kV according to patient size. COMPARISON: [facility], CT, CT HEAD/BRAIN WO CON, 05/02/2018, 7:54. [facility], CT, CT HEAD/BRAIN WO CON, 03/24/2018, 13:04. [facility], CT, CT HEAD/BRAIN WO CON, 02/25/2018, 14:33. FINDINGS: Image quality: Excellent. CSF spaces: Basal cisterns are patent. No extra-axial fluid collections. Ventricles are normal in size and shape. Brain: No midline shift. No intracranial masses or hemorrhage. Gómez-white matter interface is normal. Skull and face: Calvarium and visualized facial bones are intact, without suspicious lesions. Sinuses: Visualized sinuses and mastoids are clear. IMPRESSION: No acute intracranial abnormality. Dictated by: Teo Thomas M.D. on 05/20/2018 at 16:17 Approved by: Teo Thomas M.D. on 05/20/2018 at 16:18 Chest x-ray: Radiologist's impression: View Report History Print [address] [address] XRay Report Signed Patient: Debbie Cho MR#: [id number] : 1960 Acct:[id number] Age/Sex: 57 / F Date of Service: 05/20/18 Loc: ED Accession Number: [id number] Procedure: XR chest 1V Ordering Provider: Melonie Gannon P.A-C PROCEDURE: XR CHEST 1V INDICATIONS: fall, R. rib pain TECHNIQUE: One view of the chest was acquired. COMPARISON: [facility], , XR CHEST 2V, 05/02/2018, 7:33. FINDINGS: Surgical changes and devices: None. Lungs and pleura: No pleural effusions or pneumothorax. Lungs are clear. Mediastinum: Mediastinal contours appear normal. Heart size is enlarged. Bones and chest wall: No suspicious bony lesions. Overlying soft tissues appear unremarkable. IMPRESSION: Cardiomegaly. No definite focal infiltrate gross pneumothorax. No obvious displaced rib fracture is seen. Dictated by: Evelio Lynn M.D. on 05/20/2018 at 16:22 Approved by: Evelio Lynn M.D. on 05/20/2018 at 16:22 Discharge Plan Departure Patient Disposition: Home Clinical Impression: Fall, Contusion of head Discharge Date/Time: 05/20/18 17:12 Interventions: ED Discharge Assessment Last Done: 05/20/18 17:11 Instructions: DI for Alcohol Abuse, DI for Rib Contusion Activity Restrictions/Additional Instructions: You should return as we talked about if you have any acutely worsening symptoms. Please call or visit the [facility] that we gave you the information for if you are willing to get help for alcohol abuse. You can take over the counter pain medicine as needed, and you should follow up with your PCP to see whether any medication changes or further referrals or treatment may be helpful Prescriptions: No Action trazodone 50 MG tablet 150 mg PO HS Qty: 90 RF: 3 gabapentin [Neurontin] 800 MG tablet 800 mg PO TID Qty: 90 RF: 5 tretinoin 0.1 % cream 1 applictn TOP Q3D Qty: 45 RF: 1 oxazepam 15 mg capsule See Label Instructions PO DIRECTED PRN (Reason: alcohol withdrawal) Qty: 30 RF: 0 KBGINIL See Label Instructions .ROUTE .COMPLEX Qty: 480 RF: 0 venlafaxine 75 mg tablet extended release 24hr 75 mg PO QDAY Qty: 90 RF: 1 sumatriptan succinate 100 mg tablet 1 dose PO PRN PRN (Reason: Migraine Headache) RF: 0 alprazolam 0.5 mg tablet 1.5 tab PO DAILY PRN (Reason: Anxiety) RF: 0 Referrals: Marina Mena MD [Primary Care Provider] - <Cheko Mike MD - Last Filed: 06/16/18 18:25> [facility] I was present in the ER at the time of this patient's care. I was available for verbal consultation, or to see the patient directly if needed. I agree with the assessment, and care plan.
--- NOTE | 2018-05-20 16:08 | DI.RAD.S_ITS ---
PROCEDURE: XR CHEST 1V INDICATIONS: fall, R. rib pain TECHNIQUE: One view of the chest was acquired. COMPARISON: [facility], CR, XR CHEST 2V, 05/02/2018, 7:33. FINDINGS: Surgical changes and devices: None. Lungs and pleura: No pleural effusions or pneumothorax. Lungs are clear. Mediastinum: Mediastinal contours appear normal. Heart size is enlarged. Bones and chest wall: No suspicious bony lesions. Overlying soft tissues appear unremarkable. IMPRESSION: Cardiomegaly. No definite focal infiltrate gross pneumothorax. No obvious displaced rib fracture is seen. Dictated by: Evelio Lynn M.D. on 05/20/2018 at 16:22 Approved by: Evelio Lynn M.D. on 05/20/2018 at 16:22
--- NOTE | 2018-05-20 16:13 | ED_ITS ---
HPI - Headache <Melonie Gannon PA-C - Last Filed: 05/20/18 22:12> General Chief Complaint: Headache Stated Complaint: headache Time Seen by Provider: 05/20/18 15:49 Source: patient Mode of arrival: ambulatory Limitations: other (eTOH) History of Present Illness HPI Narrative: This 57-year-old female comes here today complaining of pain from fall. She states that she fell backwards earlier today and hit her head and her right-sided ribs. She initially denies that she has been drinking, later admits to this. She was attempting to leave and refuse CT scan stating she wants to go home, but admits that she has headache along with the rib pain. She denies pain in her neck or any other injury or pain today. She has not had nausea or vomiting in the department. Apparently a co-worker called 911 due to be worried about her. Related Data Home Medications Medication Instructions Recorded Confirmed alprazolam 1.5 tab PO DAILY PRN 02/25/18 05/20/18 sumatriptan succinate 1 dose PO PRN PRN 02/25/18 05/20/18 Previous Rx's Medication Instructions Recorded trazodone 150 mg PO HS #90 tab 10/06/17 gabapentin [Neurontin] 800 mg PO TID #90 tab 01/04/18 tretinoin 0.1 % topical cream 1 applictn TOP Q3D #45 gram 04/20/18 oxazepam 15 mg capsule See Label Instructions PO 05/23/18 DIRECTED PRN #30 cap KBGINIL See Label Instructions .ROUTE 05/31/18 .COMPLEX #480 gram venlafaxine ER 75 mg 75 mg PO QDAY #90 tab 06/08/18 tablet,extended release 24 hr Allergies Allergy/AdvReac Type Severity Reaction Status Date / Time pregabalin [PREGABALIN] Allergy Severe HIVES Verified 05/01/18 10:51 adhesive tape [ADHESIVE TAPE] Allergy Unknown Verified 05/01/18 10:51 iodine [IODINE] Allergy Unknown Verified 05/01/18 10:51 Sulfa (Sulfonamide Allergy Unknown Verified 05/01/18 10:51 Antibiotics) [SULFA (SULFONAMIDE ANTIBIOTICS)] Review of Systems <Melonie Gannon PA-C - Last Filed: 05/20/18 22:12> Review of Systems unobtainable due to mental status Exam <Melonie Gannon PA-C - Last Filed: 05/20/18 22:12> Narrative Exam Narrative: GENERAL APPEARANCE: Patient ambulating through the hallway, intermittently tearful, but in NAD HEENT: No scalp laceration or hematoma visible, no tenderness to palpation. Kalli, EOMI NECK/THYROID: Neck supple LUNGS: Clear to auscultation bilaterally. HEART: Regular rate and rhythm without murmur, normal S1, S2, no S3 or S4. CHEST: Tender over the right upper to mid anterior lateral ribs ABDOMEN: Soft, NT, ND, + BS x 4 quadrants EXTREMITIES: No cyanosis or edema NEUROLOGIC: Patient is not able to give a complete history or focus on topic MUSCULOSKELETAL: Full range of motion of the extremities. No point tenderness over the cervical, thoracic or lumbar spine. Initial Vital Signs Initial Vital Signs: Vital Signs Temperature 98.2 F 05/20/18 15:20 Pulse Rate 85 05/20/18 15:20 Respiratory Rate 18 05/20/18 15:20 Blood Pressure 129/90 H 05/20/18 15:20 Pulse Oximetry 97 05/20/18 15:20 <Cheko Mike MD - Last Filed: 06/16/18 18:25> Initial Vital Signs Initial Vital Signs: Vital Signs Temperature 98.2 F 05/20/18 15:20 Pulse Rate 85 05/20/18 15:20 Respiratory Rate 18 05/20/18 15:20 Blood Pressure 129/90 H 05/20/18 15:20 Pulse Oximetry 97 05/20/18 15:20 Course <Melonie Gannon PA-C - Last Filed: 05/20/18 22:12> Additional Information: I reviewed findings with Dr. Mike who agrees with plan for discharge. He is familiar with this patient.. Patient is more lucid prior to discharge, admits that she had been drinking today, feeling better now. She states that she would like help with alcohol treatment resources which were given. Advised no injury found today on testing but that she should return if any new or worsening symptoms. Orders Ordered: ED Orders 05/20/18 15:32 CT head/brain wo con Stat 05/20/18 16:08 XR chest 1V Stat Vital Signs - 8 hr 05/20/18 15:20 Temperature 98.2 F Pulse Rate 85 Respiratory Rate 18 Blood Pressure 129/90 H Pulse Oximetry 97 <Cheko Mike MD - Last Filed: 06/16/18 18:25> Orders Ordered: ED Orders 05/20/18 15:32 CT head/brain wo con Stat 05/20/18 16:08 XR chest 1V Stat Vital Signs - 8 hr 05/20/18 15:20 Temperature 98.2 F Pulse Rate 85 Respiratory Rate 18 Blood Pressure 129/90 H Pulse Oximetry 97 MDM - Headache <Melonie Gannon PA-C - Last Filed: 05/20/18 22:12> Imaging Data CT scan - head: Radiologist's impression: View Report History Print [address] [address] [address] Scan Report Signed Patient: Debbie Cho MR#: [id number] : 1960 Acct:[id number] Age/Sex: 57 / F Date of Service: 05/20/18 Loc: ED Accession Number: [id number] Procedure: CT head/brain wo con Ordering Provider: Cheko Mike M.D. PROCEDURE: CT HEAD/BRAIN WO CON INDICATIONS: hit head TECHNIQUE: Noncontrast 4.5 mm thick angled axial sections acquired from the foramen magnum to the vertex, with coronal and sagittal reformats. For radiation dose reduction, the following was used: automated exposure control, adjustment of mA and/or kV according to patient size. COMPARISON: [facility], CT, CT HEAD/BRAIN WO CON, 05/02/2018, 7:54. [facility], CT, CT HEAD/BRAIN WO CON, 03/24/2018, 13:04. [facility], CT, CT HEAD/BRAIN WO CON, 02/25/2018, 14:33. FINDINGS: Image quality: Excellent. CSF spaces: Basal cisterns are patent. No extra-axial fluid collections. Ventricles are normal in size and shape. Brain: No midline shift. No intracranial masses or hemorrhage. Gómez-white matter interface is normal. Skull and face: Calvarium and visualized facial bones are intact, without suspicious lesions. Sinuses: Visualized sinuses and mastoids are clear. IMPRESSION: No acute intracranial abnormality. Dictated by: Teo Thomas M.D. on 05/20/2018 at 16:17 Approved by: Teo Thomas M.D. on 05/20/2018 at 16:18 Chest x-ray: Radiologist's impression: View Report History Print [address] [address] XRay Report Signed Patient: Debbie Cho MR#: [id number] : 1960 Acct:[id number] Age/Sex: 57 / F Date of Service: 05/20/18 Loc: ED Accession Number: [id number] Procedure: XR chest 1V Ordering Provider: Melonie Gannon P.A-C PROCEDURE: XR CHEST 1V INDICATIONS: fall, R. rib pain TECHNIQUE: One view of the chest was acquired. COMPARISON: [facility], , XR CHEST 2V, 05/02/2018, 7:33. FINDINGS: Surgical changes and devices: None. Lungs and pleura: No pleural effusions or pneumothorax. Lungs are clear. Mediastinum: Mediastinal contours appear normal. Heart size is enlarged. Bones and chest wall: No suspicious bony lesions. Overlying soft tissues appear unremarkable. IMPRESSION: Cardiomegaly. No definite focal infiltrate gross pneumothorax. No obvious displaced rib fracture is seen. Dictated by: Evelio Lynn M.D. on 05/20/2018 at 16:22 Approved by: Evelio Lynn M.D. on 05/20/2018 at 16:22 Discharge Plan Departure Patient Disposition: Home Clinical Impression: Fall, Contusion of head Discharge Date/Time: 05/20/18 17:12 Interventions: ED Discharge Assessment Last Done: 05/20/18 17:11 Instructions: DI for Alcohol Abuse, DI for Rib Contusion Activity Restrictions/Additional Instructions: You should return as we talked about if you have any acutely worsening symptoms. Please call or visit the [facility] that we gave you the information for if you are willing to get help for alcohol abuse. You can take over the counter pain medicine as needed, and you should follow up with your PCP to see whether any medication changes or further referrals or treatment may be helpful Prescriptions: No Action trazodone 50 MG tablet 150 mg PO HS Qty: 90 RF: 3 gabapentin [Neurontin] 800 MG tablet 800 mg PO TID Qty: 90 RF: 5 tretinoin 0.1 % cream 1 applictn TOP Q3D Qty: 45 RF: 1 oxazepam 15 mg capsule See Label Instructions PO DIRECTED PRN (Reason: alcohol withdrawal) Qty: 30 RF: 0 KBGINIL See Label Instructions .ROUTE .COMPLEX Qty: 480 RF: 0 venlafaxine 75 mg tablet extended release 24hr 75 mg PO QDAY Qty: 90 RF: 1 sumatriptan succinate 100 mg tablet 1 dose PO PRN PRN (Reason: Migraine Headache) RF: 0 alprazolam 0.5 mg tablet 1.5 tab PO DAILY PRN (Reason: Anxiety) RF: 0 Referrals: Marina Mena MD [Primary Care Provider] - <Cheko Mike MD - Last Filed: 06/16/18 18:25> [facility]: I was present in the ER at the time of this patient's care. I was available for verbal consultation, or to see the patient directly if needed. I agree with the assessment, and care plan.
== END 2018-05-20 17:12 | disposition home or self-care (01) ==
LOC: ED 17:13
PROVIDERS: Emergency Provider Internal Medicine; Family Provider Family Medicine; PCP Family Medicine
DX: S00.93XA Contusion of unspecified part of head, initial encounter (principal); W19.XXXA Unspecified fall, initial encounter
CPT/HCPCS: 70450; 71045; 99282; 99284

== ENCOUNTER → 2018-05-27 10:41 | Outpatient (CLI) | payer OTHER, MEDICAID, SELFPAY ==
--- NOTE | 2018-05-27 | DI.RAD.S_ITS ---
PROCEDURE: XR HAND RT MIN 3V INDICATIONS: RIGHT HAND PAIN TECHNIQUE: 3 views of the hand(s) acquired. COMPARISON: None. FINDINGS: Bones: No fractures or dislocations. Carpal bones are normally aligned. No suspicious bony lesions. Soft tissues: No suspicious soft tissue calcifications. IMPRESSION: Shortness of right hand pain is not seen. No trauma found. Dictated by: Aime Adams M.D. on 05/27/2018 at 13:02 Approved by: Aime dAams M.D. on 05/27/2018 at 13:02
== END ==
PROVIDERS: Family Provider Family Medicine; PCP Family Medicine; Visit Provider Family Medicine
DX: M79.641 Pain in right hand (principal); M85.851 Other specified disorders of bone density and structure, right thigh; Z78.0 Asymptomatic menopausal state; Z82.62 Family history of osteoporosis; F17.200 Nicotine dependence, unspecified, uncomplicated
CPT/HCPCS: 73130; 77080

== ENCOUNTER → 2018-08-16 10:56 | Outpatient (CLI) | payer OTHER, MEDICAID, SELFPAY ==
[2018-08-16 12:21] LABS: Cholesterol 196 mg/dL (140-199); HDL Cholesterol 93 mg/dL (40-60); LDL Cholesterol Calculated 83 mg/dL (<100); Triglycerides 102 mg/dL (35-150)
[2018-08-16 12:25] LABS: Rheumatoid Factor < 8.6 IU/mL (<12.0)
[2018-08-16 13:10] LABS: TSH w/ Reflex to FT4 1.52 uIU/mL (0.47-4.68)
[2018-08-16 14:55] LABS: Vitamin D 25 Hydroxy (D3) 39.6 ng/mL (30.0-100.0)
== END ==
PROVIDERS: Family Provider Family Medicine; PCP Family Medicine; Visit Provider Family Medicine
DX: M25.50 Pain in unspecified joint (principal); Z13.220 Encounter for screening for lipoid disorders; E03.9 Hypothyroidism, unspecified; M85.80 Other specified disorders of bone density and structure, unspecified site
CPT/HCPCS: 36415; 80061; 82306; 84443; 86430

== ENCOUNTER 2020-04-15 17:53 | Emergency (ER) | payer OTHER, MEDICAID, SELFPAY ==
[2020-04-15] VITALS (12 sets, daily range): BP systolic 109–147; BP diastolic 57–82; PULSE 76–89; RESP 11–20; TEMP 36.4–36.7; O2SAT 91–99
--- NOTE | 2020-04-15 20:09 | DI.RAD.S_ITS ---
PROCEDURE: XR CHEST 1V INDICATIONS: chest pain TECHNIQUE: One view of the chest was acquired. COMPARISON: [facility], CR, XR CHEST 1V, 05/20/2018, 15:46. [facility], CR, XR CHEST 2V, 05/02/2018, 7:33. FINDINGS: Surgical changes and devices: None. Lungs and pleura: Lungs are clear. No pleural effusions or pneumothorax. Mediastinum: Mediastinal contours appear normal. Heart size is normal. Bones and chest wall: No suspicious bony lesions. Overlying soft tissues appear unremarkable. IMPRESSION: Normal for age, source of current chest pain symptoms is not seen. Dictated by: Aime Adams M.D. on 04/15/2020 at 21:09 Approved by: Aime Adams M.D. on 04/15/2020 at 21:10
--- NOTE | 2020-04-15 20:21 | PC.NURSE ---
Patient states that she has been suffering from her feet swelling for the last two weeks. She complains that for the last two day shes been having twitching in her left arm. Her lung sounds are clear and she does not complain of cough or SOB. She states that she drink approx 6-8 oz of vodka prior to coming in to the ED. She states that her DrDylan once told her that one side of her heart does not work properly.
[2020-04-15 20:31] LABS: Prothrombin Time 11.6 SECONDS (10.1-12.7)
[2020-04-15 20:34] LABS: Add Manual Diff / Slide Review NO; Basophils Absolute Auto 0 /uL (0-100); Basophils Percent Auto 0.7 % (0-2); Eosinophils Absolute Auto 100 /uL (0-450); Eosinophils Percent Auto 3.4 % (2-4); Hematocrit 30.9 % (36-46); Hemoglobin 10.4 g/dL (12.0-16.0); Lymphocytes Absolute Auto 1900 /uL (1100-4500); Lymphocytes Percent Auto 64.5 % (25-40); Mean Corpuscular HGB Conc 33.6 % (30-36); Mean Corpuscular Hemoglobin 38.2 PG (26-34); Mean Corpuscular Volume 113.6 fL (80-100); Monocytes Absolute Auto 200 /uL (0-900); Monocytes Percent Auto 6.1 % (3-14); Neutrophils Absolute Auto 700 /uL (1500-7000); Neutrophils Percent Auto 25.3 % (50-75); PTT Partial Thromboplastin Tim 35 SECONDS (26.4-36.2); Platelet Count 202 X10^3/uL (150-400); Red Blood Cell Count 2.72 X10^6/uL (4.0-5.2); Red Cell Distribution Width 21.9 % (11.6-14.8); White Blood Cell Count 2.9 X10^3/uL (4.5-11.0)
[2020-04-15 20:37] LABS: Alanine Aminotransferase 69 IU/L (<35); Albumin 4.1 g/dL (3.5-5.0); Albumin Globulin Ratio 1.4 (1.0-2.8); Alkaline Phosphatase 237 U/L (38-126); Aspartate Aminotransferase 184 IU/L (14-36); BUN Creatinine Ratio 14.9 (6-22); Bilirubin Total 1.3 mg/dL (0.2-1.3); Blood Urea Nitrogen 7 mg/dL (7-17); Calcium 9.9 mg/dL (8.4-10.2); Carbon Dioxide 31 mmol/L (22-32); Chloride 104 mmol/L (98-107); Creatine Kinase 48 U/L (30-135); Estimated Glomerular Filt Rate > 60.0 mL/min (>60); Ethanol (ETOH) 202 mg/dL; Glucose 85 mg/dL (70-100); HEMOLYSIS 16 (0-50); Lipase 178 U/L (23-300); Magnesium 1.7 mg/dL (1.6-2.3); Potassium 4.2 mmol/L (3.4-5.1); Sodium 141 mmol/L (137-145); Total Protein 7.1 g/dL (6.3-8.2)
[2020-04-15 20:38] LABS: Lactate (Lactic Acid) 3.5 mmol/L (0.7-2.1)
[2020-04-15 20:48] LABS: NT-proBNP (BNP-Adult 18+) 93 pg/mL (<125); Troponin I < 0.012 ng/mL (0.01-0.034)
[2020-04-15 21:00] LABS: Anisocytosis 3+; Poikilocytosis 1+
[2020-04-15 21:01] LABS: Macrocytosis 3+
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
--- NOTE | 2020-04-15 21:25 | DI.CT.S_ITS ---
PROCEDURE: CT ABDOMEN PELVIS W CON INDICATIONS: Alcoholism. suspect cirrhosis. TECHNIQUE: After the administration of intravenous contrast, 5 mm thick sections acquired from the diaphragm to the symphysis. 5 mm coronal and sagittal reformats were acquired. For radiation dose reduction, the following was used: automated exposure control, adjustment of mA and/or kV according to patient size. COMPARISON: [facility], US, US ABDOMEN COMPLETE, 05/10/2019, 17:26. FINDINGS: Image quality: Excellent. ABDOMEN: Lung bases: Lung bases are clear. Heart size is normal. Solid organs: Liver is normal in size and is normal in enhancement except for a 2.7 cm peripherally enhancing subcapsular right posterior hepatic segment liver lesion which has imaging characteristics suggestive of but not fully diagnostic of hepatic hemangioma. The liver appears mildly fatty infiltrated. Gallbladder appears normal. Biliary system is non dilated. Pancreas enhances normally. Spleen is normal in size and enhancement. No adrenal nodules. Kidneys demonstrate normal size and enhancement, without hydronephrosis. Peritoneum and bowel: Bowel loops demonstrate normal wall thickness and caliber. No free fluid or air. Nodes and vessels: No retroperitoneal or mesenteric adenopathy by size criteria. Aorta and inferior vena cava are normal in size. Miscellaneous: No ventral hernias. PELVIS: Genitourinary: Bladder wall thickness is normal. Miscellaneous: No inguinal hernias or adenopathy. Bones: No suspicious bony lesions. No vertebral body compression fractures. IMPRESSION: Mild fatty infiltration within the liver. The liver contains a 2.7 cm rim-enhancing right posterior hepatic segment subcapsular lesion, which by appearance is most likely a hemangioma. Followup by elective targeted single organ ultrasound directed to the exact area of current CT concern is recommended to assist in establishing benign etiology. The spleen is not enlarged, and no ascites is present, no varices are seen. Dictated by: Aime Adams M.D. on 04/15/2020 at 21:53 Approved by: Aime Adams M.D. on 04/15/2020 at 21:59
[2020-04-15] MEDS: SODIUM CHLORIDE 0.9% 1,000 ML 1000 ML IV (21:30)
[2020-04-15 22:04] LABS: Ammonia (NH3) < 9 umol/L (9-30)
[2020-04-15 22:20] LABS: Reflexed Lactate in 2 Hours Y
--- NOTE | 2020-04-15 22:44 | PC.NURSE ---
Pt c/o worsening muscle spasming despite ativan. Writhing on bed.
[2020-04-15 22:50] LABS: Lactate 2HR (Lactic Acid Rflx) 2.9 mmol/L (0.7-2.1)
[2020-04-16] VITALS: PULSE 85; O2SAT 93
[2020-04-16 00:15] LABS: Lactate (Lactic Acid) 2.4 mmol/L (0.7-2.1)
[2020-04-16 00:30] VITALS: BP 126/74; PULSE 89; RESP 16; TEMP 36.8; O2SAT 92
[2020-04-16] MEDS: FUROSEMIDE 40 MG/4 ML VIAL IV (00:31)
[2020-04-16 01:51] VITALS: BP 126/74; PULSE 86; RESP 17; TEMP 36.8; O2SAT 96
[2020-04-16 02:02] LABS: Reflexed Lactate in 2 Hours Y
== END 2020-04-16 02:11 | disposition home or self-care (01) ==
PROVIDERS: Nurse Practitioner Family; Emergency Provider Emergency Medicine; Family Provider Family Medicine; PCP Family Medicine
DX: K70.10 Alcoholic hepatitis without ascites (principal); R60.9 Edema, unspecified; I10 Essential (primary) hypertension; R07.9 Chest pain, unspecified; R79.89 Other specified abnormal findings of blood chemistry
CPT/HCPCS: 36415; 71045; 74177; 80053; 80320; 82140; 82550; 83605; 83690; 83735; 83880; 84484; 85025; 85610; 85730; 93005; 93010; 96361; 96374; 99284; J1940; Q9967

== ENCOUNTER 2022-04-11 00:35 | Emergency (ER) | payer OTHER, MEDICAID, SELFPAY ==
[2022-04-11] VITALS (8 sets, daily range): BP systolic 137–155; BP diastolic 64–99; PULSE 75–98; RESP 16–17; TEMP 37.4; O2SAT 94–100; BMI 25.5
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
--- NOTE | 2022-04-11 00:51 | DI.RAD.S_ITS ---
PROCEDURE: XR RIBS LT MIN 3V W CXR1V INDICATIONS: fall TECHNIQUE: Two views of the left ribs were acquired, along with a single view chest. COMPARISON: [facility], CR, XR CHEST 1V, 04/15/2020, 20:19. FINDINGS: Surgical changes and devices: None. Bones and chest wall: There is a suspected minimally displaced fracture of the left 7th rib laterally. No suspicious bony lesions. Overlying soft tissues appear unremarkable. Lungs and pleura: No pleural effusions or pneumothorax. Lungs appear clear. Mediastinum: Mediastinal contours appear normal. Heart size is normal. IMPRESSION: 1. Suspected fracture of the left 7th rib laterally. Dictated by: Oliver Hurt M.D. on 04/11/2022 at 1:52 Approved by: Oliver Hurt M.D. on 04/11/2022 at 1:54
[2022-04-11] MEDS: KETOROLAC 30 MG/ML VIAL 15 MG IV (01:05)
[2022-04-11] MEDS: SODIUM CHLORIDE 0.9% 1,000 ML 1000 ML IV (01:05)
[2022-04-11 01:12] LABS: Add Manual Diff / Slide Review NO; Basophils Absolute Auto 0 /uL (0-100); Basophils Percent Auto 0.6 % (0-2); Eosinophils Absolute Auto 0 /uL (0-450); Eosinophils Percent Auto 0.3 % (2-4); Hematocrit 41.7 % (36-46); Hemoglobin 14.2 g/dL (12.0-16.0); Lymphocytes Absolute Auto 2500 /uL (1100-4500); Lymphocytes Percent Auto 58.3 % (25-40); Mean Corpuscular Hemoglobin 34.2 PG (26-34); Mean Corpuscular Volume 100.6 fL (80-100); Monocytes Absolute Auto 200 /uL (0-900); Monocytes Percent Auto 5.3 % (3-14); Neutrophils Absolute Auto 1500 /uL (1500-7000); Neutrophils Percent Auto 35.5 % (50-75); Platelet Count 169 X10^3/uL (150-400); Red Blood Cell Count 4.14 X10^6/uL (4.0-5.2); Red Cell Distribution Width 15.1 % (11.6-14.8); White Blood Cell Count 4.3 X10^3/uL (4.5-11.0)
[2022-04-11 01:19] LABS: Alanine Aminotransferase 95 IU/L (<35); Albumin 4.7 g/dL (3.5-5.0); Albumin Globulin Ratio 1.6 (1.0-2.8); Alkaline Phosphatase 93 U/L (38-126); Aspartate Aminotransferase 173 IU/L (14-36); BUN Creatinine Ratio 17.7 (6-22); Bilirubin Total 0.7 mg/dL (0.2-1.3); Blood Urea Nitrogen 11 mg/dL (7-17); Calcium 7.7 mg/dL (8.4-10.2); Carbon Dioxide 20 mmol/L (22-32); Chloride 102 mmol/L (98-107); Estimated Glomerular Filt Rate > 60 mL/min (>60); Globulin 2.9 g/dL (1.7-4.1); Glucose 171 mg/dL (70-100); HEMOLYSIS 26 (0-50); Lipase 49 U/L (23-300); Magnesium 1.9 mg/dL (1.6-2.3); Potassium 3.9 mmol/L (3.4-5.1); Sodium 141 mmol/L (137-145); Total Protein 7.6 g/dL (6.3-8.2)
[2022-04-11 01:30] LABS: COVID19 -Nasal RAPID Negative (Negative)
[2022-04-11 01:59] LABS: Troponin I < 0.012 ng/mL (0.01-0.034)
[2022-04-11 02:12] LABS: Ethanol (ETOH) 319 mg/dL
== END 2022-04-11 09:24 | disposition home or self-care (01) ==
PROVIDERS: Emergency Provider Emergency Medicine; Family Provider Family Medicine; PCP Family Medicine
DX: S20.212A Contusion of left front wall of thorax, initial encounter (principal); W18.11XA Fall from or off toilet without subsequent striking against object, initial encounter; F10.129 Alcohol abuse with intoxication, unspecified; Y90.8 Blood alcohol level of 240 mg/100 ml or more
CPT/HCPCS: 71101; 80053; 80320; 83690; 83735; 84484; 85025; 87635; 96361; 96374; 99283; 99284; C9803; J1885